=== PATIENT | male | born 1950 | race Caucasian/White ===

== ENCOUNTER 2018-12-10 19:41 | Observation (INO) ==
[2018-12-10 21:02] LABS: Eosinophils % 0.6 %; Mean Platelet Volume 9.1 fL (9.4-12.4)
[2018-12-10 21:04] LABS: Basophils % 0.3 %; Hematocrit 29.7 % (37.5-50.1); Hemoglobin 8.6 g/dL (12.9-16.9); Immature Granulocytes % 0.3 % (0-4); Lymphocytes # 0.5 K/mcL (0.6-4.6); Lymphocytes % 7.2 %; Mean Corpuscular Hemoglobin 25.8 pg (28.0-33.3); Mean Corpuscular Volume 89.2 fL (83.0-100.0); Monocytes # 0.7 K/mcL (0.0-1.3); Neutrophils # 5.5 K/mcL (1.6-8.9); Platelet Count 187 K/mcL (140-400); Red Blood Count 3.33 M/mcL (4.19-5.50); Red Cell Distribution Width 17.2 % (11.5-14.5); Segmented Neutrophils % 81.6 %; White Blood Count 6.7 K/mcL (4.3-11.1)
[2018-12-10 21:24] LABS: Calcium 8.6 mg/dL (8.6-10.3); Potassium 5.1 mEq/L (3.5-5.1); Troponin I 0.03 ng/mL (< 0.04)
[2018-12-10 21:33] LABS: Hypochromasia Present (Not Present); Polychromasia 1+ (Not Present)
[2018-12-10] MEDS ORDERED: Bumetanide 1 MG/4 ML VIAL IVP ONE (23:32)
[2018-12-11] MEDS ORDERED: Naloxone 0.4 MG/ML INJ IVP PRN (01:30)
[2018-12-11] MEDS ORDERED: Ondansetron 4 MG/2 ML VIAL IVP PRN (01:30)
[2018-12-11 01:36] LABS: INR 3.3; Prothrombin Time 37.1 Seconds (9.4-12.1)
[2018-12-11] MEDS ORDERED: *HR* Dextrose 50 % in Water (Syg) 50 ML SYRINGE IVP PRN (01:53)
[2018-12-11] MEDS ORDERED: D5% in Water 1,000 ML IVC PRN (01:53)
[2018-12-11] MEDS ORDERED: Dextrose Gel 15 GM/37.5 ML TUBE PO PRN ×2 (01:53)
[2018-12-11 03:53] LABS: Basophils % 0.2 %; Eosinophils # 0.1 K/mcL (0.0-0.6); Hematocrit 28.6 % (37.5-50.1); Hemoglobin 8.3 g/dL (12.9-16.9); Immature Granulocytes % 0.3 % (0-4); Lymphocytes # 0.5 K/mcL (0.6-4.6); Lymphocytes % 7.9 %; Mean Corpuscular Hemoglobin 25.8 pg (28.0-33.3); Mean Corpuscular Volume 88.8 fL (83.0-100.0); Mean Platelet Volume 9.2 fL (9.4-12.4); Monocytes # 0.7 K/mcL (0.0-1.3); Monocytes % 11.8 %; Neutrophils # 4.9 K/mcL (1.6-8.9); Platelet Count 175 K/mcL (140-400); Red Blood Count 3.22 M/mcL (4.19-5.50); Red Cell Distribution Width 17.3 % (11.5-14.5); Segmented Neutrophils % 78.8 %; White Blood Count 6.2 K/mcL (4.3-11.1)
[2018-12-11 04:02] LABS: INR 3.4; Prothrombin Time 38.3 Seconds (9.4-12.1)
[2018-12-11 04:05] LABS: Activated Partial Thrombo Time 35.9 Seconds (26.0-36.0)
[2018-12-11 04:11] LABS: Estimated Average Glucose 163 mg/dl
[2018-12-11 04:12] LABS: Albumin 3.2 g/dL (3.5-5.7); Albumin/Globulin Ratio 1.2 (1.1-2.2); Bilirubin,Total 1.1 mg/dL (0.3-1.0); Calcium 8.4 mg/dL (8.6-10.3); Chol/HDL Ratio 5.2 (0-4.9); Globulin 2.7 g/dL (2.4-3.5); Magnesium 2.7 mg/dL (1.6-2.6); Phosphorous 3.8 mg/dL (2.7-4.5); Potassium 4.5 mEq/L (3.5-5.1); Total Protein 5.9 g/dL (6.4-8.9)
[2018-12-11] MEDS ORDERED: Furosemide 40 MG/4 ML VIAL IVP SCH (08:00)
[2018-12-11] MEDS ORDERED: metOLazone 5 MG TABLET PO SCH (08:30)
[2018-12-11] MEDS: *HR* Amiodarone 200 MG TABLET PO SCH (09:04)
[2018-12-11] MEDS: Aspirin 81 MG TAB.CHEW PO SCH (09:04)
[2018-12-11] MEDS: carvediloL 6.25 MG TABLET PO SCH ×2 (09:04→17:10)
[2018-12-11] MEDS: Insulin LISPRO 300 UNITS/3 ML VIAL SQ SCH ×4 (09:05→21:21)
[2018-12-11] MEDS: metOLazone 5 MG TABLET PO SCH (09:05)
[2018-12-11] MEDS: Bumetanide 1 MG/4 ML VIAL IVP SCH (17:10)
[2018-12-11] MEDS ORDERED: Warfarin perPT PO PRN (18:00)
[2018-12-11] MEDS ORDERED: *HR* Warfarin 3 MG TABLET PO ONE (18:00)
[2018-12-12 04:44] LABS: Hematocrit 29.1 % (37.5-50.1); Hemoglobin 8.5 g/dL (12.9-16.9); Mean Corpuscular HGB Conc 29.2 g/dL (31.6-35.5); Mean Corpuscular Hemoglobin 25.9 pg (28.0-33.3); Mean Corpuscular Volume 88.7 fL (83.0-100.0); Mean Platelet Volume 9.6 fL (9.4-12.4); Platelet Count 195 K/mcL (140-400); Red Blood Count 3.28 M/mcL (4.19-5.50); Red Cell Distribution Width 17.5 % (11.5-14.5); White Blood Count 5.7 K/mcL (4.3-11.1)
[2018-12-12 04:56] LABS: INR 2.9; Prothrombin Time 32.7 Seconds (9.4-12.1)
[2018-12-12 05:02] LABS: Calcium 8.8 mg/dL (8.6-10.3); Magnesium 2.9 mg/dL (1.6-2.6); Potassium 4.3 mEq/L (3.5-5.1)
[2018-12-12] MEDS: Insulin LISPRO 300 UNITS/3 ML VIAL SQ SCH ×4 (08:16→21:09)
[2018-12-12] MEDS: Bumetanide 1 MG/4 ML VIAL IVP SCH (08:23)
[2018-12-12] MEDS: *HR* Amiodarone 200 MG TABLET PO SCH (08:24)
[2018-12-12] MEDS: metOLazone 5 MG TABLET PO SCH (08:24)
[2018-12-12] MEDS: carvediloL 6.25 MG TABLET PO SCH ×2 (08:25→18:13)
[2018-12-12] MEDS: Aspirin 81 MG TAB.CHEW PO SCH (08:25)
[2018-12-12] MEDS ORDERED: *HR* Warfarin 3 MG TABLET PO ONE (18:00)
[2018-12-13 02:43] LABS: Basophils % 0.2 %; Eosinophils # 0.1 K/mcL (0.0-0.6); Eosinophils % 1.1 %; Hematocrit 31.4 % (37.5-50.1); Hemoglobin 9.1 g/dL (12.9-16.9); Immature Granulocytes % 0.5 % (0-4); Lymphocytes # 0.5 K/mcL (0.6-4.6); Lymphocytes % 8.1 %; Mean Corpuscular Hemoglobin 25.4 pg (28.0-33.3); Mean Corpuscular Volume 87.7 fL (83.0-100.0); Mean Platelet Volume 9.5 fL (9.4-12.4); Monocytes # 0.6 K/mcL (0.0-1.3); Monocytes % 10.1 %; Neutrophils # 4.9 K/mcL (1.6-8.9); Platelet Count 211 K/mcL (140-400); Red Blood Count 3.58 M/mcL (4.19-5.50); Red Cell Distribution Width 17.5 % (11.5-14.5); White Blood Count 6.2 K/mcL (4.3-11.1)
[2018-12-13 02:50] LABS: INR 2.8; Prothrombin Time 31.8 Seconds (9.4-12.1)
[2018-12-13 03:02] LABS: Calcium 8.9 mg/dL (8.6-10.3); Potassium 4.3 mEq/L (3.5-5.1)
[2018-12-13] MEDS: Aspirin 81 MG TAB.CHEW PO SCH (08:54)
[2018-12-13] MEDS: Insulin LISPRO 300 UNITS/3 ML VIAL SQ SCH ×4 (08:54→20:39)
[2018-12-13] MEDS: *HR* Amiodarone 200 MG TABLET PO SCH (08:54)
[2018-12-13] MEDS: carvediloL 6.25 MG TABLET PO SCH ×2 (09:18→18:35)
[2018-12-13] MEDS: Bumetanide 1 MG/4 ML VIAL IVP SCH ×2 (09:45→18:35)
[2018-12-13] MEDS ORDERED: *HR* Warfarin 3 MG TABLET PO ONE (18:00)
[2018-12-14 05:27] LABS: Red Cell Distribution Width 17.4 % (11.5-14.5)
[2018-12-14 05:28] LABS: Hematocrit 31.6 % (37.5-50.1); Hemoglobin 9.2 g/dL (12.9-16.9); Mean Corpuscular HGB Conc 29.1 g/dL (31.6-35.5); Mean Corpuscular Hemoglobin 25.6 pg (28.0-33.3); Mean Platelet Volume 9.1 fL (9.4-12.4); Platelet Count 211 K/mcL (140-400); Red Blood Count 3.59 M/mcL (4.19-5.50); White Blood Count 6.4 K/mcL (4.3-11.1)
[2018-12-14 05:33] LABS: INR 2.8; Prothrombin Time 31.6 Seconds (9.4-12.1)
[2018-12-14 05:48] LABS: Calcium 9.3 mg/dL (8.6-10.3); Potassium 4.4 mEq/L (3.5-5.1)
[2018-12-14] MEDS: Insulin LISPRO 300 UNITS/3 ML VIAL SQ SCH ×4 (10:49→21:16)
[2018-12-14] MEDS: *HR* Amiodarone 200 MG TABLET PO SCH (10:50)
[2018-12-14] MEDS: carvediloL 6.25 MG TABLET PO SCH ×2 (10:50→17:53)
[2018-12-14] MEDS: Aspirin 81 MG TAB.CHEW PO SCH (10:50)
[2018-12-14] MEDS: Bumetanide 1 MG/4 ML VIAL IVP SCH ×2 (10:51→17:52)
[2018-12-14] MEDS ORDERED: *HR* Warfarin 3 MG TABLET PO ONE (18:00)
[2018-12-15 02:56] LABS: Hematocrit 32.1 % (37.5-50.1); Hemoglobin 9.4 g/dL (12.9-16.9); Mean Corpuscular HGB Conc 29.3 g/dL (31.6-35.5); Mean Corpuscular Hemoglobin 25.4 pg (28.0-33.3); Mean Corpuscular Volume 86.8 fL (83.0-100.0); Mean Platelet Volume 9.3 fL (9.4-12.4); Platelet Count 215 K/mcL (140-400); Red Cell Distribution Width 17.3 % (11.5-14.5); White Blood Count 6.6 K/mcL (4.3-11.1)
[2018-12-15 03:01] LABS: INR 2.8; Prothrombin Time 32.4 Seconds (9.4-12.1)
[2018-12-15 03:14] LABS: Calcium 9.1 mg/dL (8.6-10.3); Magnesium 2.5 mg/dL (1.6-2.6); Potassium 4.3 mEq/L (3.5-5.1)
[2018-12-15] MEDS: Insulin LISPRO 300 UNITS/3 ML VIAL SQ SCH ×4 (08:11→21:38)
[2018-12-15] MEDS: carvediloL 6.25 MG TABLET PO SCH ×2 (08:28→17:27)
[2018-12-15] MEDS: Bumetanide 1 MG/4 ML VIAL IVP SCH ×2 (08:28→17:27)
[2018-12-15] MEDS: Aspirin 81 MG TAB.CHEW PO SCH (08:28)
[2018-12-15] MEDS: *HR* Amiodarone 200 MG TABLET PO SCH (08:28)
[2018-12-15] MEDS ORDERED: *HR* Warfarin 3 MG TABLET PO ONE (18:00)
[2018-12-16 06:29] LABS: INR 2.4; Prothrombin Time 27.6 Seconds (9.4-12.1)
[2018-12-16] MEDS: Aspirin 81 MG TAB.CHEW PO SCH (08:56)
[2018-12-16] MEDS: Bumetanide 1 MG/4 ML VIAL IVP SCH ×2 (08:56→16:35)
[2018-12-16] MEDS: carvediloL 6.25 MG TABLET PO SCH ×2 (08:56→16:36)
[2018-12-16] MEDS: Insulin LISPRO 300 UNITS/3 ML VIAL SQ SCH ×4 (08:56→20:42)
[2018-12-16] MEDS: *HR* Amiodarone 200 MG TABLET PO SCH (08:56)
[2018-12-16 09:27] LABS: Hematocrit 32.7 % (37.5-50.1); Hemoglobin 9.5 g/dL (12.9-16.9); Mean Corpuscular HGB Conc 29.1 g/dL (31.6-35.5); Mean Corpuscular Volume 89.3 fL (83.0-100.0); Mean Platelet Volume 9.1 fL (9.4-12.4); Platelet Count 218 K/mcL (140-400); Red Blood Count 3.66 M/mcL (4.19-5.50); Red Cell Distribution Width 17.4 % (11.5-14.5); White Blood Count 6.4 K/mcL (4.3-11.1)
[2018-12-16 09:41] LABS: Calcium 9.1 mg/dL (8.6-10.3); Potassium 4.5 mEq/L (3.5-5.1)
[2018-12-16] MEDS ORDERED: *HR* Warfarin 3 MG TABLET PO ONE (18:00)
[2018-12-17 07:03] LABS: INR 2.3; Prothrombin Time 26.6 Seconds (9.4-12.1)
[2018-12-17 07:15] LABS: Calcium 9.4 mg/dL (8.6-10.3); Potassium 4.4 mEq/L (3.5-5.1)
[2018-12-17] MEDS: carvediloL 6.25 MG TABLET PO SCH ×2 (08:22→17:19)
[2018-12-17] MEDS: Aspirin 81 MG TAB.CHEW PO SCH (08:22)
[2018-12-17] MEDS: Bumetanide 1 MG/4 ML VIAL IVP SCH ×2 (08:22→17:18)
[2018-12-17] MEDS: *HR* Amiodarone 200 MG TABLET PO SCH (08:22)
[2018-12-17] MEDS: Insulin LISPRO 300 UNITS/3 ML VIAL SQ SCH ×4 (08:23→20:47)
[2018-12-17] MEDS ORDERED: Bumetanide 1 MG/4 ML VIAL IVP ONE (09:55)
[2018-12-17] MEDS ORDERED: *HR* Warfarin 3 MG TABLET PO ONE (18:00)
[2018-12-18 05:20] LABS: INR 2.8; Prothrombin Time 31.9 Seconds (9.4-12.1)
[2018-12-18 05:33] LABS: Calcium 9.2 mg/dL (8.6-10.3); Potassium 4.8 mEq/L (3.5-5.1)
[2018-12-18] MEDS: *HR* Amiodarone 200 MG TABLET PO SCH (08:37)
[2018-12-18] MEDS: carvediloL 6.25 MG TABLET PO SCH ×2 (08:37→17:49)
[2018-12-18] MEDS: Aspirin 81 MG TAB.CHEW PO SCH (08:37)
[2018-12-18] MEDS: Bumetanide 1 MG/4 ML VIAL IVP SCH (08:38)
[2018-12-18] MEDS: Insulin LISPRO 300 UNITS/3 ML VIAL SQ SCH ×3 (12:34→19:53)
[2018-12-18] MEDS: Bumetanide 1 MG TABLET PO SCH (17:48)
[2018-12-18] MEDS ORDERED: *HR* Warfarin 3 MG TABLET PO ONE (18:00)
[2018-12-18] MEDS ORDERED: Insulin LISPRO 300 UNITS/3 ML VIAL SQ SCH (21:00)
[2018-12-19 04:04] LABS: Hemoglobin 8.7 g/dL (12.9-16.9)
[2018-12-19 04:05] LABS: Mean Corpuscular HGB Conc 28.1 g/dL (31.6-35.5); Mean Corpuscular Hemoglobin 25.3 pg (28.0-33.3); Mean Corpuscular Volume 90.1 fL (83.0-100.0); Mean Platelet Volume 9.3 fL (9.4-12.4); Platelet Count 189 K/mcL (140-400); Red Blood Count 3.44 M/mcL (4.19-5.50); Red Cell Distribution Width 17.6 % (11.5-14.5); White Blood Count 6.5 K/mcL (4.3-11.1)
[2018-12-19 04:10] LABS: INR 2.7; Prothrombin Time 30.2 Seconds (9.4-12.1)
[2018-12-19 04:23] LABS: Calcium 9.2 mg/dL (8.6-10.3); Potassium 4.7 mEq/L (3.5-5.1)
[2018-12-19] MEDS: Bumetanide 1 MG TABLET PO SCH (08:19)
[2018-12-19] MEDS: Insulin LISPRO 300 UNITS/3 ML VIAL SQ SCH (08:19)
[2018-12-19] MEDS: carvediloL 6.25 MG TABLET PO SCH (08:19)
[2018-12-19] MEDS: *HR* Amiodarone 200 MG TABLET PO SCH (08:19)
[2018-12-19] MEDS: Aspirin 81 MG TAB.CHEW PO SCH (08:19)
[2018-12-19 11:08] VITALS: BP 111/57
== END 2018-12-19 13:15 | disposition home or self-care (01) ==
LOC: CDU 19:41 → EMEROOARM 19:41 → SUATTDRO 23:57 → CDU 12-11 00:54 → 3BNU 12-13 17:13
PROVIDERS: ADMIT Internal Medicine Nephrology; ATTEND Internal Medicine

== ENCOUNTER 2018-12-20 16:26 | Observation (INO) ==
[2018-12-20] MEDS ORDERED: Naloxone 0.4 MG/ML INJ IVP PRN (22:28)
[2018-12-20] MEDS ORDERED: Dextrose Gel 15 GM/37.5 ML TUBE PO PRN ×2 (23:10)
[2018-12-20] MEDS ORDERED: D5% in Water 1,000 ML IVC PRN (23:10)
[2018-12-20] MEDS ORDERED: *HR* Dextrose 50 % in Water (Syg) 50 ML SYRINGE IVP PRN (23:10)
--- NOTE | 2018-12-20 23:21 | Internal Med History&Physical ---
<Phil Thompson - Last Filed: 12/21/18 00:56> Date of Encounter: 12/21/18 Time of Encounter: 22:30 Internal Medicine - H&P: HPI Chief complaint: fall Admitted From: Hospital to Hospital Transfer Plans for Post Hospital Care: Home History of present illness: Mr. Elliott is a 68 year old male with history of heart failure with reduced ejection fraction with an ejection fraction of 16%, diabetes mellitus, hy pertension, CKD, who was recently discharged from the hospital on 12/19/18 following an admission for CHF exacerbation who presents from [facility] due to syncope and fall. The patient states that he had gotten out of his car and was walking to the crushed use the bathroom when he briefly lost consciousness and fell and hit his head. He does not remember exactly how it happened, however he feels that he got lightheaded, passed out and lost consciousness. He says that this happened in a few seconds and his sister woke him up. This has happened once before. He says that earlier in the day he did not very busy and was basically running errands around town but was not having a ny problems. He does say that he had some shortness of breath even with short distance of walking, and was not seeing significant improvement since leaving the hospital. He denies any chest pains. He was not having any other significant symptoms including fever, chills, sweats. He denies any visual disturbance, headache, focal neurological deficits, paresthesias. He otherwise has no acute complaints at this time. In the emergency department at [place], the patient did have a set of labs which demonstrated sodium 137, potassium 4.9, chloride 100, bicarbonate 28, BUNs 71, serum creatinine 1.64, glucose 238. His CBC showed WBC 7.2, hemoglobin 8.3, platelets 213. The patient also had liver enzymes demonstrating AST 45, LT 51, lactic acid 2.26. His troponin was mildly elevated at 0.05 and then 0.07. He had a CT of the head which was negative and a CT of the maxillofacial area area which was also negative. Chest x-ray showed bilateral lower lobe infiltrates positive for possible pneumonitis versus atelectasis. His symptoms generally got better as he was resting however he was transferred to [facility] for further workup and management. Past Med Surg Social Fam HX - Past Medical History Medical history: atrial fibrillation, CHF, coronary artery disease, diabetes, hypertension, myocardial infarction, renal disease Psychiatric history: no psych history - Past Surgical History Surgical History: angioplasty/stent, coronary bypass (CABG) Additional surgical history: Cardiac cath with stent placement. CABG - Social History Smoking Status: Never smoker Smokeless Tobacco Status: No Alcohol use: none Drug use: none - Family History Mother Living Status: Hx Family Cardiac Disorders: Yes Father Living Status: Hx Family Cardiac Disorders: Yes Internal Medicine - H&P: Meds Amiodarone [Cordarone] 200 mg PO DAILY 09/07/18 [History] Carvedilol [Coreg] 6.25 mg PO BID 09/07/18 [History] Lisinopril 2.5 mg PO DAILY 09/07/18 [History] Warfarin [Coumadin] 3 mg PO SUTUTHSA@1800 09/07/18 [History] GlipiZIDE [Glipizide Xl] 5 mg PO DAILY 09/09/18 [History] Aspirin 81 mg PO DAILY 11/07/18 [History] Warfarin [Coumadin] 1.5 mg PO MOWEFR@1800 12/10/18 [History] Multivitamin [One-Daily Multi-Vitamin] 1 tab PO DAILY 12/12/18 [History] Bumetanide [Bumex] 2 mg PO BIDDIURETIC #120 tablet 12/19/18 [Rx] Allergy/AdvReac Type Severity Reaction Status Date / Time No Known Allergies Allergy Verified 12/12/18 07:46 All Systems PM: A 10-system review of systems was performed and is negative for pertinent findings except as documented above in the HPI. Review of systems: Constitutional: Denies fevers, chills, weight loss, generalized fatigue Head/Neck: Denies LOWRY, neck stiffness EENT: Denies vision changes/blurriness, rhinorrhea, congestion, sore throat CVS: Denies chest pain, palpitations, PND. Admits to dyspnea on exertion, edema which has improved Pulm: Denies cough, sputum, hemoptysis, wheezing GI: Denies abdominal pain, nausea, vomiting, diarrhea, constipation, melena, hematemasis : Denies dysuria, increased frequency, urgency, hematuria Heme: Admits to ease of bleeding MSK: Denies joint pain, limited ROM. He does feel that his legs are generally weak. Skin: Denies rashes, ulcers, color changes Neuro: Denies LOWRY, paresthesias, focal deficits, ataxia - Constitutional Vitals: Temp Pulse Resp Pulse Ox 97.6 F 80 20 99 12/20/18 21:04 12/20/18 21:04 12/20/18 21:04 12/20/18 21:04 Exam: Gen: Vitals noted. No acute distress. Eyes: anicteric sclerae, moist conjunctivae; no lid-lag; Pupils equal and reactive to light HENT: Multiple areas of ecchymosis and blunt lacerations with blood from fall. oropharynx clear with moist mucous membranes and no mucosal ulcerations; normal hard and soft palate Neck: Trachea midline; supple, no thyromegaly or lymphadenopathy Cardiac: RRR, no murmur, +S1/S2 Pulmonary: Bibasilar rales noted on examination Abdomen: soft, nontender, no guarding. No masses or hepatosplenomegaly MSK: ROM intact, no joint swelling noted. Extremities: 1-2+ BLE edema, nontender calf, no cyanosis or clubbing. Lacerations noted with skin wrapped around and blood from fall Skin: Normal temperature, turgor and texture; no rash, ulcers or subcutaneous nodules Neuro: moves all extremities, no focal deficits. Muscle strength intact in all 4 extremities. Speech is appropriate without slurring Psych: Appropriate mood and behavior. A&Ox3 Internal Med - H&P Results - Labs CBC & Chem 7: 12/21/18 00:12 12/21/18 00:12 - Assessment and Plan (1) Syncope and collapse Current Visit: Yes Status: Acute Assessment and plan: Syncope and collapse, likely secondary to systolic heart failure with reduced ejection fraction Patient apparently does have severe heart failure, ejection fraction 16%. He does state that he becomes significantly short of breath with minimal exertion Uncertain what the exact cause of syncope is not situation, however he has had significant diuresis recently Labs do not indicate that he has an AK I, however BUN and is 71. Possible for some intravascular depletion Additionally, given his shortness of breath, he could have potentially had some demand ischemia leading to syncope Finally, the patient's lactic acid was 2.26 at [place], and he did just been a significant amount of time in the hospital Chest x-ray at [place] showed bilateral lower lobe infiltrates suggesting pneumonitis versus atelectasis Plan We will check blood cultures, pro-calcitonin Repeat labs in the morning, BMP and CBC Cardiac and O2 monitoring, Trend troponins q4h neuro checks Hold aspirin and coumadin (2) Heart failure with reduced ejection fraction Current Visit: Yes Status: Acute Assessment and plan: HFrEF, recently admitted with acute exacerbation. MUGA Report 11/06/18 Gated EF 16%. Echo shows dilated LV Appears to be approaching euvolemic state on examination Will continue BB, lisinopril. Hold Asa in acute syncope with hit to head Continue home bumex Qualifiers: Heart failure chronicity: chronic Qualified Code(s): I50.22 - Chronic systolic (congestive) heart failure (3) Afib Current Visit: Yes Status: Chronic Assessment and plan: Chronic afib on warfarin Hold due to fall with hit to head Qualifiers: Atrial fibrillation type: paroxysmal Qualified Code(s): I48.0 - Paroxysmal atrial fibrillation (4) Type 2 diabetes mellitus Current Visit: Yes Status: Chronic Assessment and plan: DM with hyperglycemia ACHS accuchecks, Hold PO meds Will start weight based Levemir. SSI Qualifiers: Diabetes mellitus tank terminal gauger insulin use: without penitentiary use Diabetes mellitus complication status: without complication Qualified Code(s): E11.9 - Type 2 diabetes mellitus without complications (5) CAD (coronary artery disease) Current Visit: Yes Status: Chronic Assessment and plan: Continue home meds, hold ASA Qualifiers: Coronary Disease-Associated Artery/Lesion type: [place] artery [place] vs. transplanted heart: [place] heart Associated angina: without angina Qualified Code(s): I25.10 - Atherosclerotic heart disease of [place] coronary artery without angina pectoris (6) Elevated troponin Current Visit: Yes Status: Acute Assessment and plan: Elevated troponin, 0.05 -> 0.07 Likely demand ischemia in setting of CHF Will trend to peak - Time Spent With Patient Total time spent is greater than 50% in coordination of care (as documented) at patient's floor/unit and/or counseling patient: <KofiKennyNicci Z - Last Filed: 12/21/18 07:02> Date of Encounter: 12/20/18 Internal Medicine - H&P: HPI History of present illness: Mr. Elliott is a 68 year old male All Systems PM: A 10-system review of systems was performed and is negative for pertinent findings except as documented above in the HPI. - Constitutional Vitals: Temp Pulse Resp BP Pulse Ox 97.6 F 69 14 99/75 97 12/21/18 04:23 12/21/18 04:23 12/21/18 04:23 12/21/18 04:58 12/21/18 04:23 Internal Med - H&P Results - Labs CBC & Chem 7: 12/21/18 00:12 12/21/18 00:12 Labs: Short CBC 12/21/18 Range/Units 00:12 WBC 8.4 (4.3-11.1) K/mcL Hgb 8.7 L (12.9-16.9) g/dL Hct 29.6 L (37.5-50.1) % Plt Count 201 (140-400) K/mcL Neutrophils # 7.1 (1.6-8.9) K/mcL BMP 12/21/18 00:12 Sodium 138 Potassium 4.7 Chloride 102 Carbon Dioxide 26 BUN 68 H Creatinine 1.63 H Glucose 185 H Calcium 9.4 Cardiac Enzymes 12/21/18 12/21/18 Range/Units 00:12 04:47 Troponin I 0.90 H* 0.77 H* (< 0.04) ng/mL Liver Function 12/21/18 Range/Units 00:12 Total Bilirubin 1.2 H (0.3-1.0) mg/dL AST 44 H (13-39) Units/L ALT 50 (7-52) Units/L Alkaline Phosphatase 191 H (34-104) Units/L Albumin 3.6 (3.5-5.7) g/dL - Time Spent With Patient Total time spent is greater than 50% in coordination of care (as documented) at patient's floor/unit and/or counseling patient: - Attending Attestation I performed a history and physical examination of the patient and discussed his management with the resident. I reviewed the residents note and agree with the documented findings and plan of care.
[2018-12-21 00:29] LABS: Basophils % 0.2 %; Eosinophils % 0.1 %; Hematocrit 29.6 % (37.5-50.1); Hemoglobin 8.7 g/dL (12.9-16.9); Immature Granulocytes % 0.6 % (0-4); Lymphocytes # 0.5 K/mcL (0.6-4.6); Lymphocytes % 6.2 %; Mean Corpuscular HGB Conc 29.4 g/dL (31.6-35.5); Mean Corpuscular Hemoglobin 25.9 pg (28.0-33.3); Mean Corpuscular Volume 88.1 fL (83.0-100.0); Mean Platelet Volume 9.2 fL (9.4-12.4); Monocytes # 0.7 K/mcL (0.0-1.3); Monocytes % 8.2 %; Neutrophils # 7.1 K/mcL (1.6-8.9); Platelet Count 201 K/mcL (140-400); Red Blood Count 3.36 M/mcL (4.19-5.50); Red Cell Distribution Width 17.7 % (11.5-14.5); Segmented Neutrophils % 84.7 %; White Blood Count 8.4 K/mcL (4.3-11.1)
[2018-12-21 00:36] LABS: INR 2.2; Prothrombin Time 25.5 Seconds (9.4-12.1)
[2018-12-21 00:44] LABS: Albumin 3.6 g/dL (3.5-5.7); Albumin/Globulin Ratio 1.1 (1.1-2.2); Bilirubin,Total 1.2 mg/dL (0.3-1.0); Calcium 9.4 mg/dL (8.6-10.3); Globulin 3.2 g/dL (2.4-3.5); Magnesium 2.5 mg/dL (1.6-2.6); Phosphorous 4.4 mg/dL (2.7-4.5); Potassium 4.7 mEq/L (3.5-5.1); Total Protein 6.8 g/dL (6.4-8.9)
[2018-12-21] MEDS: Insulin LISPRO 300 UNITS/3 ML VIAL SQ SCH ×4 (08:00→22:02)
--- NOTE | 2018-12-21 08:18 | Internal Med Progress Note ---
<Moise Stone - Last Filed: 12/21/18 13:35> Hospitalist Progress Note - Encounter Date of Encounter: 12/21/18 - Exam Vitals: Temp Pulse Resp BP Pulse Ox 97.7 F 76 14 115/54 96 12/21/18 10:40 12/21/18 10:40 12/21/18 10:40 12/21/18 10:40 12/21/18 10:40 - Time Spent with Patient Total time spent is greater than 50% in coordination of care (as documented) at patient's floor/unit and/or counseling patient: Internal Medicine: Result - Labs CBC & Chem 7: 12/21/18 00:12 12/21/18 00:12 Labs: Short CBC 12/21/18 Range/Units 00:12 WBC 8.4 (4.3-11.1) K/mcL Hgb 8.7 L (12.9-16.9) g/dL Hct 29.6 L (37.5-50.1) % Plt Count 201 (140-400) K/mcL Neutrophils # 7.1 (1.6-8.9) K/mcL BMP 12/21/18 00:12 Sodium 138 Potassium 4.7 Chloride 102 Carbon Dioxide 26 BUN 68 H Creatinine 1.63 H Glucose 185 H Calcium 9.4 Cardiac Enzymes 12/21/18 12/21/18 12/21/18 Range/Units 00:12 04:47 10:00 Troponin I 0.90 H* 0.77 H* 0.56 H* (< 0.04) ng/mL Liver Function 12/21/18 Range/Units 00:12 Total Bilirubin 1.2 H (0.3-1.0) mg/dL AST 44 H (13-39) Units/L ALT 50 (7-52) Units/L Alkaline Phosphatase 191 H (34-104) Units/L Albumin 3.6 (3.5-5.7) g/dL - ABG Interpretation ABG results: PT/INR, D-dimer PT 25.5 Seconds (9.4-12.1) H 12/21/18 00:12 - Impressions Impressions Chest X-Ray 12/21/18 08:55 IMPRESSION: Stable mild congestive heart failure. Small left pleural effusion. D/ / Jodi Aguilar MD / Jodi Aguilar MD Interpreting Provider: Jodi Aguilar MD Consult Discharge Plan - Plan Referrals: Richelle Caballero [Primary Care Provider] - - Attending Attestation I have seen and independently assessed this patient and I agree with plan as documented Plan Syncope and collapse in the setting of ischemic cardiomyopathy. Possibly 2/2 to diuresis and dehydration vs arrhythmia in absence of ICD Cardiology consulted and appreciate recs. Obtain orthostatics. Monitor volume status with diuresis <Cristian Flood L - Last Filed: 12/21/18 16:26> Hospitalist Progress Note - Encounter Date of Encounter: 12/21/18 Time of Encounter: 08:17 - Subjective Interval History: Patient seen and examined. Sitting comfortably in chair next to bed. No acute events since admission. Afebrile. Patient denies any headache, chest pain, shortness of breath, abdominal pain, constipation, diarrhea, changes in urination. Patient does report some leg swelling has improved significantly since beginning her previous admission. - Exam Vitals: Temp Pulse Resp BP Pulse Ox 98.2 F 66 14 108/66 97 12/21/18 07:10 12/21/18 07:10 12/21/18 07:10 12/21/18 07:10 12/21/18 07:10 Exam: Gen: Vitals noted. No acute distress. Eyes: anicteric sclerae, moist conjunctivae, Pupils equal and reactive to light HENT: Multiple areas of ecchymosis and dried blood from fall. Noted on Forehead and left cheek. oropharynx clear with moist mucous membranes and no mucosal ulcerations; normal hard and soft palate Neck: Trachea midline; supple, no thyromegaly or lymphadenopathy Cardiac: RRR, no murmur, +S1/S2 Pulmonary: Bibasilar wheezing, mild. No rales or crackles Abdomen: soft, nontender, no guarding. No masses or hepatosplenomegaly MSK: ROM intact, no joint swelling noted. Extremities: 1-2+ BLE edema, nontender calf, no cyanosis or clubbing. Skin: Normal temperature, turgor and texture; noulcers or subcutaneous nodules. Dry scaly skin noted on BL shins Neuro: moves all extremities, no focal deficits. Muscle strength intact in all 4 extremities. Speech is appropriate without slurring Psych: Appropriate mood and behavior. A&Ox3 - Assessment and Plan (1) Syncope and collapse Current Visit: Yes Status: Acute Assessment and Plan: Presented with syncope and collapse. Fall with head trauma secondary to lightheadedness -Hx of heart failure with reduced ejection fraction 16% -SOB with minimal exertion -Discharged on diuretics on 12/19/18 after admission for CHF exacerbation -Possibly due to dehydration, secondary to diuretic use -Elevated troponin, possible demand ischemia/infarct that led to syncope -CXR, BL lower lobe infiltrates Plan: - Blood cultures pending - pro-calcitonin 0.20 - Monitor Labs, BMP, CBC - Cardiac and O2 monitoring - Troponins: 0.90>>0.77>>0.56 - q4h neuro checks - Hold coumadin - Cardiiology consult: Describes orthostasis, caution with diuresis, monitor tele (2) Elevated troponin Current Visit: Yes Status: Acute Assessment and Plan: Elevated troponin, 0.90>>0.77>>0.56 -Denies chest pain -Cardiology consulted: NSTEMI type I vs Type II, will consider further ischemic work-up (3) Heart failure with reduced ejection fraction Current Visit: Yes Status: Acute Assessment and Plan: HFrEF, recently admitted with acute exacerbation. MUGA Report 11/06/18 Gated EF 16%. Echo shows dilated LV Appears to be approaching euvolemic state on examination 2+ pitting edema remains, improved since the beginning of previous admission Will continue BB Continue home bumex - Cariology consult: Bumex as tolerated. Continue BB, kaden aceI, strict I&Os (4) Afib Current Visit: Yes Status: Chronic Assessment and Plan: Chronic afib on warfarin Hold due to fall with hit to head - Rate controlled with carvedilol - Will consider restarting coumadin before discharge (5) Type 2 diabetes mellitus Current Visit: Yes Status: Chronic Assessment and Plan: DM with hyperglycemia ACHS accuchecks, Hold PO meds - Levemir. SSI (6) CAD (coronary artery disease) Current Visit: Yes Status: Chronic Assessment and Plan: CABG 1999. 5 stents, most recent 2017 -cont ASA, BB, Statin DVT Prophylaxis: SCDs - Time Spent with Patient Total time spent is greater than 50% in coordination of care (as documented) at patient's floor/unit and/or counseling patient: Internal Medicine: Result - Labs CBC & Chem 7: 12/21/18 00:12 12/21/18 00:12 Labs: Short CBC 12/21/18 Range/Units 00:12 WBC 8.4 (4.3-11.1) K/mcL Hgb 8.7 L (12.9-16.9) g/dL Hct 29.6 L (37.5-50.1) % Plt Count 201 (140-400) K/mcL Neutrophils # 7.1 (1.6-8.9) K/mcL BMP 12/21/18 00:12 Sodium 138 Potassium 4.7 Chloride 102 Carbon Dioxide 26 BUN 68 H Creatinine 1.63 H Glucose 185 H Calcium 9.4 Cardiac Enzymes 12/21/18 12/21/18 Range/Units 00:12 04:47 Troponin I 0.90 H* 0.77 H* (< 0.04) ng/mL Liver Function 12/21/18 Range/Units 00:12 Total Bilirubin 1.2 H (0.3-1.0) mg/dL AST 44 H (13-39) Units/L ALT 50 (7-52) Units/L Alkaline Phosphatase 191 H (34-104) Units/L Albumin 3.6 (3.5-5.7) g/dL - ABG Interpretation ABG results: PT/INR, D-dimer PT 25.5 Seconds (9.4-12.1) H 12/21/18 00:12 <Cristian Flood L - Last Filed: 12/21/18 16:26> (3) Heart failure with reduced ejection fraction Qualifiers: Qualified Code(s): I50.22 - Chronic systolic (congestive) heart failure (4) Afib Qualifiers: Qualified Code(s): I48.0 - Paroxysmal atrial fibrillation (5) Type 2 diabetes mellitus Qualifiers: Qualified Code(s): E11.9 - Type 2 diabetes mellitus without complications (6) CAD (coronary artery disease) Qualifiers: Qualified Code(s): I25.10 - Atherosclerotic heart disease of [place] coronary artery without angina pectoris
[2018-12-21] MEDS ORDERED: Aspirin 81 MG TAB.CHEW PO SCH (09:00)
[2018-12-21] MEDS: Bumetanide 1 MG TABLET PO SCH ×2 (09:10→17:18)
[2018-12-21] MEDS: *HR* Amiodarone 200 MG TABLET PO SCH (09:10)
--- NOTE | 2018-12-21 13:20 | Cardiology Consult Note ---
<Jerrell Hernandez - Last Filed: 12/21/18 13:15> Date of Encounter: 12/21/18 Time of Encounter: 13:15 Assessment and Plan (1) Syncope and collapse Current Visit: Yes Status: Acute Describes orthostasis. B/p low on my exam. S/p admission for IV diuresis with bumex and metolazone. Slow position change recommended. Caution with diuresis. Monitor telemetry. Rate controlled atrial firillation seen. No VT, bradycardia, or pauses. Orthostatic vitals. (2) Elevated troponin Current Visit: Yes Status: Acute Troponin elevation, 0.90, 0.77, 0.56. S/p Fall. NSTEMI type I vs Type II. Denies chest pain although no chest pain in the past. Known ICMP. Ef 16% on recent muga scan. 30-35% on TTE. We will consider further ischemic evaluation during hospital stay. Coumadin on hold d/t head trauma. Heparin was deferred. Continue asa, statin, bb. (3) CAD (coronary artery disease) Current Visit: Yes Status: Acute H/o CABG in 1999 and 5 cardiac stents, most recently 2017. Continue asa, statin, bb. Qualifiers: Coronary Disease-Associated Artery/Lesion type: [place] artery [place] vs. transplanted heart: [place] heart Associated angina: without angina Qualified Code(s): I25.10 - Atherosclerotic heart disease of [place] coronary artery without angina pectoris (4) CHF exacerbation Current Visit: No Status: Acute H/o chronic HFrEF. EF 16% on muga and 30%-35% on TTE. Recent admission for IV diuresis. BLE edema improved. Continues to have 2+ pitting edema. Contimue bumex as tolerated. Continue bb. No aceI with hypotension and renal insufficiency. Strict I&O and daily weight. He is scheduled out-pt to discuss ICD. Qualifiers: Heart failure type: systolic Qualified Code(s): I50.23 - Acute on chronic systolic (congestive) heart failure (5) Afib Current Visit: Yes Status: Chronic H/o PAF. Currently rate controlled afib. On carvedilol for rate control. Coumadin held on admission after fall. Will consider restarting prior to discharge. INR currently 2.2. Qualifiers: Atrial fibrillation type: paroxysmal Qualified Code(s): I48.0 - Paroxysmal atrial fibrillation Discussion w patient/family: The assessment and plan as outlined above was discussed with the patient and/or family members who expressed understanding and agreement. All questions were answered. Thank you for involving us in the care of your patient. Please call with any questions. History of Present Illness Consult date: 12/21/18 Requesting physician: Cristian Flood Consult reason: elevated troponin, Need for ICD Chief complaint: Presyncope History of present illness: Mr. Elliott is a 68 year old male with a past medical history of CAD status post CABG 1999, prior PCI , ischemic cardiomyopathy, atrial fibrillation on Coumadin, and diabetes type 2. He presented to [facility] after he became lightheaded and fell. He may have passed out. He has multiple abrasions on his face, arms, and leg. He denies chest pain. He was just discharged from the hospital two days ago. He was seen for acute on chronic CHF and diuresed. He was hospitalized multiple times this year for CHF. Cardiology consulted for elevated troponin. His coumadin was held on admission due to head trauma. He is scheduled to discuss ICD placement in the out-pt setting. Prior CV testing: TTE 09/2017- EF 30-35%. Severe segmental systolic dysfunction. Mild to moderate LVH. Indeterminate diastolic function. Mild RV hypokinesis mild aortic stenosis. Moderate tricuspid regurgitation. Mild pulmonic regurgitation. Moderate p ulmonary artery hypertension. -LVEF 20-25%. Severe left atrial and right atrial enlargement. Mild to moderate AR. Moderate MR. Past Med Surg Social Fam HX - Past Medical History Medical history: atrial fibrillation, CHF, coronary artery disease, diabetes, hypertension, myocardial infarction, renal disease Psychiatric history: no psych history - Past Surgical History Surgical History: angioplasty/stent, coronary bypass (CABG) Additional surgical history: Cardiac cath with stent placement. CABG - Social History Smoking Status: Never smoker Smokeless Tobacco Status: No Alcohol use: none Drug use: none - Family History Mother Living Status: Hx Family Cardiac Disorders: Yes Father Living Status: Hx Family Cardiac Disorders: Yes Medications and Allergies Amiodarone [Cordarone] 200 mg PO DAILY 09/07/18 [History] Carvedilol [Coreg] 6.25 mg PO BID 09/07/18 [History] Lisinopril 2.5 mg PO DAILY 09/07/18 [History] Warfarin [Coumadin] 3 mg PO SUTUTHSA@1800 09/07/18 [History] GlipiZIDE [Glipizide Xl] 5 mg PO DAILY 09/09/18 [History] Aspirin 81 mg PO DAILY 11/07/18 [History] Warfarin [Coumadin] 1.5 mg PO MOWEFR@1800 12/10/18 [History] Multivitamin [One-Daily Multi-Vitamin] 1 tab PO DAILY 12/12/18 [History] Bumetanide [Bumex] 2 mg PO BIDDIURETIC #120 tablet 12/19/18 [Rx] Allergy/AdvReac Type Severity Reaction Status Date / Time No Known Allergies Allergy Verified 12/12/18 07:46 All Systems Review: The remainder of the systems were reviewed and are negative Physical Examination Vital Signs, Last 4 Hours Temp Pulse Resp BP Pulse Ox 12/21/18 10:40 97.7 F 76 14 115/54 96 General: Conversant, No Apparent Distress HEENT: Atraumatic, Normocephaly, Mucus Membranes Moist Neck: No JVD, Normal carotid pulses Cardiac: Other (Irregular) Lungs: Normal Breath Sounds, No Wheeze, Rales, Rhonchi Neuro: Alert and responsive, No focal deficits noted Abdomen: Soft, Non-Tender Skin: Other (Multiple abrasions on face, arm, and knee) Musculoskeletal: No Chest Wall Tenderness Extremities: No Clubbing, No Cyanosis, No Edema, Normal Pulses Results 12/21/18 00:12 12/21/18 00:12 Lab Results 12/21/18 12/21/18 12/21/18 00:12 00:12 00:12 WBC 8.4 Hgb 8.7 L Hct 29.6 L Plt Count 201 INR 2.2 Sodium 138 Potassium 4.7 Chloride 102 Carbon Dioxide 26 BUN 68 H Creatinine 1.63 H Glucose 185 H Calcium 9.4 Magnesium 2.5 Total Bilirubin 1.2 H AST 44 H ALT 50 Alkaline Phosphatase 191 H Troponin I 12/21/18 12/21/18 12/21/18 00:12 04:47 10:00 WBC Hgb Hct Plt Count INR Sodium Potassium Chloride Carbon Dioxide BUN Creatinine Glucose Calcium Magnesium Total Bilirubin AST ALT Alkaline Phosphatase Troponin I 0.90 H* 0.77 H* 0.56 H* - Imaging and Cardiology Echo: report reviewed - EKG Interpretation EKG results cardiology: personally reviewed Consult Discharge Plan - Plan Referrals: Richelle Caballero [Primary Care Provider] - <Lilibeth Smith - Last Filed: 12/21/18 16:26> Date of Encounter: 12/21/18 - Attending Attestation I have personally performed a face to face evaluation on this patient. I have reviewed and agree with the care plan. History and Exam by me shows: 68 YOM with known ICM EF 16% here after fall possible orthostatic hypotension mildly elevated trops downtrending. Plan for ICD as an OP initially but presents with hypervolemia. Will continue diuresis and plan for possible inpatient ICD. Assessment and Plan Discussion w patient/family: The assessment and plan as outlined above was discussed with the patient and/or family members who expressed understanding and agreement. All questions were answered. Thank you for involving us in the care of your patient. Please call with any questions. History of Present Illness History of present illness: Mr. Elliott is a 68 year old male All Systems Review: The remainder of the systems were reviewed and are negative Physical Examination Vital Signs, Last 4 Hours Temp Pulse Resp BP Pulse Ox 12/21/18 15:40 98.1 F 74 16 106/61 97 Results 12/21/18 00:12 12/21/18 00:12 Lab Results 12/21/18 12/21/18 12/21/18 00:12 00:12 00:12 WBC 8.4 Hgb 8.7 L Hct 29.6 L Plt Count 201 INR 2.2 Sodium 138 Potassium 4.7 Chloride 102 Carbon Dioxide 26 BUN 68 H Creatinine 1.63 H Glucose 185 H Calcium 9.4 Magnesium 2.5 Total Bilirubin 1.2 H AST 44 H ALT 50 Alkaline Phosphatase 191 H Troponin I 12/21/18 12/21/18 12/21/18 00:12 04:47 10:00 WBC Hgb Hct Plt Count INR Sodium Potassium Chloride Carbon Dioxide BUN Creatinine Glucose Calcium Magnesium Total Bilirubin AST ALT Alkaline Phosphatase Troponin I 0.90 H* 0.77 H* 0.56 H*
[2018-12-21] MEDS: Insulin DETEMIR 100 UNIT/ML X5UNITS SQ SCH (22:01)
[2018-12-22 07:19] LABS: Basophils % 0.4 %; Eosinophils # 0.1 K/mcL (0.0-0.6); Eosinophils % 0.7 %; Hematocrit 26.5 % (37.5-50.1); Hemoglobin 7.8 g/dL (12.9-16.9); Immature Granulocytes % 0.7 % (0-4); Lymphocytes # 0.6 K/mcL (0.6-4.6); Lymphocytes % 7.2 %; Mean Corpuscular HGB Conc 29.4 g/dL (31.6-35.5); Mean Corpuscular Hemoglobin 25.7 pg (28.0-33.3); Mean Corpuscular Volume 87.2 fL (83.0-100.0); Mean Platelet Volume 9.4 fL (9.4-12.4); Monocytes # 0.8 K/mcL (0.0-1.3); Monocytes % 10.5 %; Neutrophils # 6.1 K/mcL (1.6-8.9); Platelet Count 201 K/mcL (140-400); Red Blood Count 3.04 M/mcL (4.19-5.50); Red Cell Distribution Width 17.8 % (11.5-14.5); Segmented Neutrophils % 80.5 %; White Blood Count 7.6 K/mcL (4.3-11.1)
[2018-12-22 07:41] LABS: Potassium 4.6 mEq/L (3.5-5.1)
[2018-12-22] MEDS: Insulin LISPRO 300 UNITS/3 ML VIAL SQ SCH ×4 (08:03→20:57)
[2018-12-22] MEDS: *HR* Amiodarone 200 MG TABLET PO SCH (08:08)
[2018-12-22] MEDS: Bumetanide 1 MG TABLET PO SCH ×2 (08:08→17:13)
--- NOTE | 2018-12-22 09:38 | Internal Med Progress Note ---
<Cristian Flood - Last Filed: 12/22/18 12:47> Hospitalist Progress Note - Encounter Date of Encounter: 12/22/18 Time of Encounter: 09:35 - Subjective Interval History: Patient seen and examined. Sitting comfortably on edge of bed. No overnight events. Afebrile. Denies headache, chest pain, shortness of breath, abdominal pain, constipation, diarrhea, changes in urination, change in leg swelling. Patient discuss treatment plan with cardiology yesterday. - Exam Vitals: Temp Pulse Resp BP Pulse Ox 98.0 F 66 16 112/61 97 12/22/18 07:24 12/22/18 07:24 12/22/18 07:24 12/22/18 07:24 12/22/18 07:24 Exam: Gen: Vitals noted. No acute distress. Eyes: anicteric sclerae, moist conjunctivae, Pupils equal and reactive to light HENT: Multiple areas of ecchymosis and dried blood from fall. Noted on Forehead and left cheek. oropharynx clear with moist mucous membranes and no mucosal ulcerations; normal hard and soft palate Neck: Trachea midline; supple, no thyromegaly or lymphadenopathy Cardiac: RRR, +S1/S2, soft systolic murmur Pulmonary: Bibasilar wheezing, mild. No rales or crackles Abdomen: soft, nontender, no guarding. No masses or hepatosplenomegaly MSK: ROM intact, no joint swelling noted. Extremities: 1-2+ BLE edema, nontender calf, no cyanosis or clubbing. Right forearm bandaged due to fall Skin: Normal temperature, turgor and texture; noulcers or subcutaneous nodules. Dry scaly skin noted on BL shins Neuro: moves all extremities, no focal deficits. Muscle strength intact in all 4 extremities. Speech is appropriate without slurring Psych: Appropriate mood and behavior. A&Ox3 - Assessment and Plan (1) Syncope and collapse Current Visit: Yes Status: Acute Assessment and Plan: Presented with syncope and collapse. Fall with head trauma secondary to lightheadedness -Hx of heart failure with reduced ejection fraction 16% -SOB with minimal exertion -Discharged on diuretics on 12/19/18 after admission for CHF exacerbation -Possibly due to dehydration, secondary to diuretic use -Elevated troponin, possible demand ischemia/infarct that led to syncope -CXR, BL lower lobe infiltrates Plan: - Blood cultures pending - pro-calcitonin 0.20 - Monitor Labs, BMP, CBC - Cardiac and O2 monitoring - Troponins: 0.90>>0.77>>0.56 - q4h neuro checks - Hold coumadin - Cardiiology consult: Recommend ICD placement or lifevest prior to discharge (2) Elevated troponin Current Visit: Yes Status: Acute Assessment and Plan: Elevated troponin, 0.90>>0.77>>0.56 - Denies chest pain - Cardiology consulted: NSTEMI type I vs Type II, No further in-patient ischemic evaluation. Suspect demand ischemia - Cont ASA, Statin, BB (3) Heart failure with reduced ejection fraction Current Visit: Yes Status: Acute Assessment and Plan: HFrEF, recently admitted with acute exacerbation. MUGA Report 11/06/18 Gated EF 16%. Echo shows dilated LV Appears to be approaching euvolemic state on examination 2+ pitting edema remains, improved since the beginning of previous admission Plan: - Will continue BB - Continue home bumex - Cariology consult: Bumex as tolerated. Continue BB, kaden aceI, strict I&Os. WIll need ICD (4) Afib Current Visit: Yes Status: Chronic Assessment and Plan: Chronic afib on warfarin - Rate controlled with carvedilol - Cardiology: Restart coumadin if able, high CVA risk. (5) Type 2 diabetes mellitus Current Visit: Yes Status: Chronic Assessment and Plan: DM with hyperglycemia - ACHS accuchecks - Levemir. SSI (6) CAD (coronary artery disease) Current Visit: Yes Status: Chronic Assessment and Plan: CABG 2000. 5 stents, most recent 2017 -cont ASA, BB, Statin DVT Prophylaxis: SCDs - Time Spent with Patient Total time spent is greater than 50% in coordination of care (as documented) at patient's floor/unit and/or counseling patient: Internal Medicine: Result - Labs CBC & Chem 7: 12/22/18 06:57 12/22/18 06:57 Labs: Short CBC 12/22/18 Range/Units 06:57 WBC 7.6 (4.3-11.1) K/mcL Hgb 7.8 L (12.9-16.9) g/dL Hct 26.5 L (37.5-50.1) % Plt Count 201 (140-400) K/mcL Neutrophils # 6.1 (1.6-8.9) K/mcL BMP 12/22/18 06:57 Sodium 138 Potassium 4.6 Chloride 100 Carbon Dioxide 28 BUN 73 H Creatinine 1.76 H Glucose 90 Calcium 9.0 Cardiac Enzymes 12/21/18 Range/Units 10:00 Troponin I 0.56 H* (< 0.04) ng/mL - ABG Interpretation ABG results: PT/INR, D-dimer PT 25.5 Seconds (9.4-12.1) H 12/21/18 00:12 - Impressions Impressions Chest X-Ray 12/21/18 08:55 IMPRESSION: Stable mild congestive heart failure. Small left pleural effusion. D/ / Jodi Aguilar MD / Jodi Aguilar MD Interpreting Provider: Jodi Aguilar MD Consult Discharge Plan - Plan Referrals: Richelle Caballero [Primary Care Provider] - <Moise Stone - Last Filed: 12/22/18 14:49> Hospitalist Progress Note - Encounter Date of Encounter: 12/22/18 - Exam Vitals: Temp Pulse Resp BP Pulse Ox 98.0 F 66 16 112/61 97 12/22/18 07:24 12/22/18 07:24 12/22/18 07:24 12/22/18 07:24 12/22/18 07:24 - Time Spent with Patient Total time spent is greater than 50% in coordination of care (as documented) at patient's floor/unit and/or counseling patient: Internal Medicine: Result - Labs CBC & Chem 7: 12/22/18 06:57 12/22/18 06:57 Labs: Short CBC 12/22/18 Range/Units 06:57 WBC 7.6 (4.3-11.1) K/mcL Hgb 7.8 L (12.9-16.9) g/dL Hct 26.5 L (37.5-50.1) % Plt Count 201 (140-400) K/mcL Neutrophils # 6.1 (1.6-8.9) K/mcL BMP 12/22/18 06:57 Sodium 138 Potassium 4.6 Chloride 100 Carbon Dioxide 28 BUN 73 H Creatinine 1.76 H Glucose 90 Calcium 9.0 - ABG Interpretation ABG results: PT/INR, D-dimer PT 25.5 Seconds (9.4-12.1) H 12/21/18 00:12 - Attending Attestation I have seen and independently assessed this patient and I agree with plan as do cumented Plan Syncope and collapse in the setting of ischemic cardiomyopathy. Possibly 2/2 to diuresis and dehydration vs arrhythmia in absence of ICD Cardiology consulted and appreciate recs. Obtain orthostatics. Monitor volume status with diuresis. Plan for lifevest or ICD placement prior to discharge <Cristian Flood - Last Filed: 12/22/18 12:47> (3) Heart failure with reduced ejection fraction Qualifiers: Heart failure chronicity: chronic Qualified Code(s): I50.22 - Chronic systolic (congestive) heart failure (4) Afib Qualifiers: Atrial fibrillation type: paroxysmal Qualified Code(s): I48.0 - Paroxysmal atrial fibrillation (5) Type 2 diabetes mellitus Qualifiers: Diabetes mellitus long-term insulin use: without long term care administrator use Diabetes mellitus complication status: without complication Qualified Code(s): E11.9 - Type 2 diabetes mellitus without complications (6) CAD (coronary artery disease) Qualifiers: Coronary Disease-Associated Artery/Lesion type: [place] artery [place] vs. transplanted heart: [place] heart Associated angina: without angina Qualified Code(s): I25.10 - Atherosclerotic heart disease of [place] coronary artery wit hout angina pectoris
--- NOTE | 2018-12-22 10:28 | Cardiology Progress Note ---
Date of Encounter: 12/22/18 Time of Encounter: 10:26 Assessment and Plan (1) Syncope and collapse Current Visit: Yes Status: Acute Describes orthostasis cannot r/o arrhythmia. Known CMP with EF 16%. B/p low on my exam. S/p admission for IV diuresis with bumex and metolazone. Slow position change recommended. Caution with diuresis. Monitor telemetry. Rate controlled atrial firillation seen. No VT, bradycardia, or pauses. Orthostatic vitals. Discussed with Dr. Smith. Patient is recommended to have ICD placement for LifeVest prior to discharge. Patient is considering and will discuss with daughter if he would like transfer to tertiary center for ICD. (2) Elevated troponin Current Visit: Yes Status: Acute Troponin elevation, 0.90, 0.77, 0.56. S/p Fall. NSTEMI type I vs Type II. Denies chest pain although no chest pain in the past. Known ICMP. Ef 16% on recent muga scan 11/2018. 30-35% on TTE. Coumadin on hold d/t head trauma. Heparin was deferred. No further in-patient ischemic evaluation recommended. Suspect demand ischemia. He is chest pain free. Continue asa, statin, bb. (3) CAD (coronary artery disease) Current Visit: Yes Status: Acute H/o CABG in 1999 and 5 cardiac stents, most recently 2016. Continue asa, statin, bb. Qualifiers: Coronary Disease-Associated Artery/Lesion type: [place] artery [place] vs. transplanted heart: [place] heart Associated angina: without angina Qualified Code(s): I25.10 - Atherosclerotic heart disease of [place] coronary artery without angina pectoris (4) CHF exacerbation Current Visit: No Status: Acute H/o chronic HFrEF. EF 16% on muga and 30%-35% on TTE. Recent admission for IV diuresis. BLE edema improved. Continues to have 2+ pitting edema. Contimue bumex as tolerated. Continue bb. No aceI with hypotension and renal insufficiency. Strict I&O and daily weight. Will need ICD placement. Qualifiers: Heart failure type: systolic Qualified Code(s): I50.23 - Acute on chronic systolic (congestive) heart failure (5) Afib Current Visit: Yes Status: Chronic H/o PAF. Currently rate controlled afib. On carvedilol for rate control. Coumadin held on admission after fall. Due to high risk for CVA in the setting of CHF and CAD the patient is recommended to restart Coumadin if able. Noted hemoglobin decreased from yesterday. Chronic anemia noted. Continue to monitor. Qualifiers: Atrial fibrillation type: paroxysmal Qualified Code(s): I48.0 - Paroxysmal atrial fibrillation Discussion w patient/family: The assessment and plan as outlined above was discussed with the patient and/or family members who expressed understanding and agreement. All questions were answered. Thank you for involving us in the care of your patient. Please call with any questions. Subjective Principal diagnosis: syncope Interval history: Patient denies recurrent events. Abrasions on right arm with some bleeding. Complain of pain around abrasions on his face. Coumadin on hold secondary to head trauma. Objective Vital Signs, Last 4 Hours Temp Pulse Resp BP Pulse Ox 12/22/18 07:24 98.0 F 66 16 112/61 97 General: Conversant, No Apparent Distress HEENT: Atraumatic, Normocephaly, Mucus Membranes Moist Neck: No JVD, Normal carotid pulses Cardiac: Reg Rate and Rhythm, Normal S1 and S2, No Murmur Lungs: Normal Breath Sounds, No Wheeze, Rales, Rhonchi Neuro: Alert and responsive, No focal deficits noted Abdomen: Soft, Non-Tender Skin: No rashes noted on visualized skin Musculoskeletal: No Chest Wall Tenderness Extremities: No Clubbing, No Cyanosis, No Edema, Normal Pulses Results 12/22/18 06:57 12/22/18 06:57 Lab Results 12/21/18 12/22/18 12/22/18 10:00 06:57 06:57 WBC 7.6 Hgb 7.8 L Hct 26.5 L Plt Count 201 Sodium 138 Potassium 4.6 Chloride 100 Carbon Dioxide 28 BUN 73 H Creatinine 1.76 H Glucose 90 Calcium 9.0 Troponin I 0.56 H* - Imaging and Cardiology Echo: report reviewed - EKG Interpretation EKG results cardiology: personally reviewed Consult Discharge Plan - Plan Referrals: Richelle Caballero [Primary Care Provider] -
[2018-12-22] MEDS: Insulin DETEMIR 100 UNIT/ML X5UNITS SQ SCH (20:55)
[2018-12-23] MEDS ORDERED: Saline Nasal Spray 44 ML BOTTLE NS PRN (00:02)
[2018-12-23] MEDS ORDERED: Acetaminophen 325 MG TABLET PO PRN (06:00)
[2018-12-23 06:15] LABS: Hematocrit 26.3 % (37.5-50.1); Hemoglobin 7.7 g/dL (12.9-16.9); Mean Corpuscular HGB Conc 29.3 g/dL (31.6-35.5); Mean Corpuscular Hemoglobin 25.6 pg (28.0-33.3); Mean Corpuscular Volume 87.4 fL (83.0-100.0); Platelet Count 211 K/mcL (140-400); Red Blood Count 3.01 M/mcL (4.19-5.50); Red Cell Distribution Width 18.2 % (11.5-14.5); White Blood Count 7.6 K/mcL (4.3-11.1)
[2018-12-23 06:32] LABS: Calcium 8.8 mg/dL (8.6-10.3); Potassium 4.5 mEq/L (3.5-5.1)
--- NOTE | 2018-12-23 07:02 | Internal Med Progress Note ---
<Moise Stone - Last Filed: 12/23/18 13:02> Hospitalist Progress Note - Encounter Date of Encounter: 12/23/18 - Exam Vitals: Temp Pulse Resp BP Pulse Ox 98.8 F 68 16 118/58 98 12/23/18 06:48 12/23/18 06:48 12/23/18 06:48 12/23/18 06:48 12/23/18 06:48 - Time Spent with Patient Total time spent is greater than 50% in coordination of care (as documented) at patient's floor/unit and/or counseling patient: Internal Medicine: Result - Labs CBC & Chem 7: 12/23/18 05:49 12/23/18 05:49 Labs: Short CBC 12/23/18 Range/Units 05:49 WBC 7.6 (4.3-11.1) K/mcL Hgb 7.7 L (12.9-16.9) g/dL Hct 26.3 L (37.5-50.1) % Plt Count 211 (140-400) K/mcL BMP 12/23/18 05:49 Sodium 135 L Potassium 4.5 Chloride 101 Carbon Dioxide 27 BUN 77 H Creatinine 1.67 H Glucose 105 Calcium 8.8 - ABG Interpretation ABG results: PT/INR, D-dimer PT 25.5 Seconds (9.4-12.1) H 12/21/18 00:12 Consult Discharge Plan - Plan Referrals: Richelle Caballero [Primary Care Provider] - - Attending Attestation I have seen and independently assessed this patient and I agree with plan as documented Plan Syncope and collapse in the setting of ischemic cardiomyopathy. Possibly 2/2 to diuresis and dehydration vs arrhythmia in absence of ICD Cardiology consulted and appreciate recs. Obtain orthostatics. Monitor volume status with diuresis. Lifevest ordered and will be place in am Anemia in setting of ischemic cardiomyopathy. transfuse one unit PRBC and give lasix after transfusion. Keep hgb >8 <Cristian Flood - Last Filed: 12/23/18 14:10> Hospitalist Progress Note - Encounter Date of Encounter: 12/23/18 Time of Encounter: 09:33 - Subjective Interval History: Patient seen and examined. Overnight events. Afebrile. Patient is waiting for LifeVest prior to discharge. He will follow up with cardiology for ICD placement. He denies headache, shortness of breath, chest pain, abdominal pain, constipation, diarrhea, change in urination, increased lower extremity edema. - Exam Vitals: Temp Pulse Resp BP Pulse Ox 98.8 F 68 16 118/58 98 12/23/18 06:48 12/23/18 06:48 12/23/18 06:48 12/23/18 06:48 12/23/18 06:48 Exam: Gen: Vitals noted. No acute distress. Eyes: anicteric sclerae, moist conjunctivae, Pupils equal and reactive to light HENT: Multiple areas of ecchymosis and dried blood from fall. Noted on Forehead and left cheek. Neck: Trachea midline; supple, no thyromegaly or lymphadenopathy Cardiac: RRR, +S1/S2, soft systolic murmur Pulmonary: Bibasilar wheezing, mild. No rales or crackles Abdomen: soft, nontender, no guarding. No masses or hepatosplenomegaly MSK: ROM intact, no joint swelling noted. Extremities: 1-2+ BLE edema, nontender calf, no cyanosis or clubbing. Right forearm bandaged due to fall Skin: Normal temperature, turgor and texture; noulcers or subcutaneous nodules. Dry scaly skin noted on BL shins Neuro: moves all extremities, no focal deficits. Speech is appropriate without slurring Psych: Appropriate mood and behavior. A&Ox3 - Assessment and Plan (1) Syncope and collapse Current Visit: Yes Status: Acute Assessment and Plan: Presented with syncope and collapse. Fall with head trauma secondary to li ghtheadedness -Hx of heart failure with reduced ejection fraction 16% -SOB with minimal exertion -Discharged on diuretics on 12/19/18 after admission for CHF exacerbation -Possibly due to dehydration, secondary to diuretic use -Elevated troponin, possible demand ischemia/infarct that led to syncope -CXR, BL lower lobe infiltrates Plan: - Blood cultures pending - pro-calcitonin 0.20 - Monitor Labs, BMP, CBC - Cardiac and O2 monitoring - Troponins: 0.90>>0.77>>0.56 - q4h neuro checks - Restarting coumadin - Cardiiology consult: Recommend lifevest prior to discharge. ICD placement outpatient (2) Anemia Current Visit: Yes Status: Acute Assessment and Plan: Anemia - Hgb 7.7 - No gross bleeding - No lightheadedness, pallor Plan: - Transfuse 1 unit - goal Hgb >8 - 40 lasix IV after transfusion - Iron panel pending - FOBT ordered (3) Elevated troponin Current Visit: Yes Status: Acute Assessment and Plan: Elevated troponin, 0.90>>0.77>>0.56 - Denies chest pain - Cardiology consulted: NSTEMI type I vs Type II, No further in-patient ischemic evaluation. Suspect demand ischemia - Cont ASA, Statin, BB (4) Heart failure with reduced ejection fraction Current Visit: Yes Status: Acute Assessment and Plan: HFrEF, recently admitted with acute exacerbation. - MUGA Report 11/06/18 Gated EF 16%. Echo shows dilated LV - Appears to be approaching euvolemic state on examination - 2+ pitting edema remains, improved since the beginning of previous admission Plan: - Will continue BB - Continue home bumex - Cariology consult: Bumex as tolerated. Continue BB, kaden aceI, strict I&Os. WIll need ICD (5) Afib Current Visit: Yes Status: Chronic Assessment and Plan: Chronic afib on warfarin - Rate controlled with carvedilol - Restarting coumadin (6) Type 2 diabetes mellitus Current Visit: Yes Status: Chronic Assessment and Plan: DM with hyperglycemia - ACHS accuchecks - Levemir. SSI (7) CAD (coronary artery disease) Current Visit: Yes Status: Chronic Assessment and Plan: CABG 2000. 5 stents, most recent 2017 -cont ASA, BB, Statin DVT Prophylaxis: SCDs - Time Spent with Patient Total time spent is greater than 50% in coordination of care (as documented) at patient's floor/unit and/or counseling patient: Internal Medicine: Result - Labs CBC & Chem 7: 12/23/18 05:49 12/23/18 05:49 Labs: Short CBC 12/22/18 12/23/18 Range/Units 06:57 05:49 WBC 7.6 7.6 (4.3-11.1) K/mcL Hgb 7.8 L 7.7 L (12.9-16.9) g/dL Hct 26.5 L 26.3 L (37.5-50.1) % Plt Count 201 211 (140-400) K/mcL Neutrophils # 6.1 (1.6-8.9) K/mcL BMP 07/20/19 07/21/19 06:57 05:49 Sodium 138 135 L Potassium 4.6 4.5 Chloride 100 101 Carbon Dioxide 28 27 BUN 73 H 77 H Creatinine 1.76 H 1.67 H Glucose 90 105 Calcium 9.0 8.8 - ABG Interpretation ABG results: PT/INR, D-dimer PT 25.5 Seconds (9.4-12.1) H 12/21/18 00:12 <Cristian Flood - Last Filed: 12/23/18 14:10> (2) Anemia Qualifiers: Anemia type: unspecified type Qualified Code(s): D64.9 - Anemia, unspecified (4) Heart failure with reduced ejection fraction Qualifiers: Heart failure chronicity: chronic Qualified Code(s): I50.22 - Chronic systolic (congestive) heart failure (5) Afib Qualifiers: Atrial fibrillation type: paroxysmal Qualified Code(s): I48.0 - Paroxysmal atrial fibrillation (6) Type 2 diabetes mellitus Qualifiers: Diabetes mellitus predatory animal exterminator insulin use: without predatory animal exterminator use Diabetes mellitus complication status: without complication Qualified Code(s): E11.9 - Type 2 diabetes mellitus without complications (7) CAD (coronary artery disease) Qualifiers: Coronary Disease-Associated Artery/Lesion type: [place] artery [place] vs. transplanted heart: [place] heart Associated angina: without angina Qualified Code(s): I25.10 - Atherosclerotic heart disease of [place] coronary artery without angina pectoris
[2018-12-23] MEDS: Insulin LISPRO 300 UNITS/3 ML VIAL SQ SCH ×4 (08:13→20:37)
[2018-12-23] MEDS: *HR* Amiodarone 200 MG TABLET PO SCH (08:17)
[2018-12-23] MEDS: Bumetanide 1 MG TABLET PO SCH ×2 (08:17→16:25)
--- NOTE | 2018-12-23 10:26 | Cardiology Progress Note ---
Date of Encounter: 12/23/18 Time of Encounter: 10:22 Assessment and Plan (1) Syncope and collapse Current Visit: Yes Status: Acute Possible orthostasis cannot r/o arrhythmia. Known CMP with EF 16%. B/p low on my exam. S/p admission for IV diuresis with bumex and metolazone. Slow position change recommended. Caution with diuresis. Monitor telemetry. Rate controlled atrial firillation seen. No VT, bradycardia, or pauses. Orthostatic vitals. Discussed with Dr. Smith. Patient is recommended to have ICD placement for LifeVest prior to discharge. Patient would like to wear life vest until out-pt scheduled appt. Pt does not wish to be transferred to tertiary center. Live vest ordered and should be placed today if rep available. Cardiology will monitor peripherally. (2) Elevated troponin Current Visit: Yes Status: Acute Troponin elevation, 0.90, 0.77, 0.56. S/p Fall. NSTEMI type I vs Type II. Denies chest pain although no chest pain in the past. Known ICMP. Ef 16% on recent muga scan 11/2018. 30-35% on TTE. Coumadin on hold d/t head trauma. Heparin was deferred. No further in-patient ischemic evaluation recommended. Suspect demand ischemia. He is chest pain free. Continue asa, statin, bb. (3) CAD (coronary artery disease) Current Visit: Yes Status: Acute H/o CABG in 1999 and 5 cardiac stents, most recently 2016 (Dr. Pina). Continue asa, statin, bb. Qualifiers: Coronary Disease-Associated Artery/Lesion type: [place] artery [place] vs. transplanted heart: [place] heart Associated angina: without angina Qualified Code(s): I25.10 - Atherosclerotic heart disease of [place] coronary artery without angina pectoris (4) CHF exacerbation Current Visit: No Status: Acute H/o chronic HFrEF. EF 16% on muga and 30%-35% on TTE. Recent admission for IV diuresis. BLE edema improved. Continues to have 1+ pitting edema. Significantly improved from prior admission. Oral bumex was increased. Contimue bumex as tolerated. Continue bb. No aceI with hypotension and renal insufficiency. Strict I&O and daily weight. Pending EP evaluation for ICD placement. Pt initially declined but is now willing to have placed. Qualifiers: Heart failure type: systolic Qualified Code(s): I50.23 - Acute on chronic systolic (congestive) heart failure (5) Afib Current Visit: Yes Status: Chronic H/o PAF. Currently rate controlled afib. On carvedilol for rate control. Coumadin held on admission after fall. Due to high risk for CVA in the setting of CHF and CAD the patient is recommended to restart Coumadin if able. Noted hemoglobin decreased from yesterday. Chronic anemia noted. Continue to monitor. Qualifiers: Atrial fibrillation type: paroxysmal Qualified Code(s): I48.0 - Paroxysmal atrial fibrillation Discussion w patient/family: The assessment and plan as outlined above was discussed with the patient and/or family members who expressed understanding and agreement. All questions were answered. Thank you for involving us in the care of your patient. Please call with any questions. Subjective Principal diagnosis: syncope Interval history: Patient denies recurrent events. Abrasions on right arm with some bleeding. Complain of pain around abrasions on his face. Coumadin on hold secondary to head trauma. Objective Vital Signs, Last 4 Hours Temp Pulse Resp BP Pulse Ox 12/23/18 06:48 98.8 F 68 16 118/58 98 General: Conversant, No Apparent Distress HEENT: Atraumatic, Normocephaly, Mucus Membranes Moist Neck: No JVD, Normal carotid pulses Cardiac: Other (Irregular) Lungs: Normal Breath Sounds, No Wheeze, Rales, Rhonchi Neuro: Alert and responsive, No focal deficits noted Abdomen: Soft, Non-Tender Skin: Other (Multiple abrasions due to fall and face arms and legs) Musculoskeletal: No Chest Wall Tenderness Extremities: No Clubbing, No Cyanosis, Normal Pulses, Other (1 pitting edema bilateral lower extremities) Results 12/23/18 05:49 12/23/18 05:49 Lab Results 12/23/18 12/23/18 05:49 05:49 WBC 7.6 Hgb 7.7 L Hct 26.3 L Plt Count 211 Sodium 135 L Potassium 4.5 Chloride 101 Carbon Dioxide 27 BUN 77 H Creatinine 1.67 H Glucose 105 Calcium 8.8 - Imaging and Cardiology Echo: report reviewed Consult Discharge Plan - Plan Referrals: Richelle Caballero [Primary Care Provider] -
[2018-12-23 13:26] LABS: Immature Reticulocyte % 38.6 % (11.0-38.0); Retculocyte # 0.06 M/mcL (0.05-0.10)
[2018-12-23 13:46] LABS: Iron 28 mcg/dL (65-175)
[2018-12-23 14:05] LABS: Ferritin 49 ng/mL (20-250)
[2018-12-23] MEDS ORDERED: 0.9 % Sodium Chloride 250 ML ONE (14:15)
[2018-12-23 14:22] LABS: Folate > 22.3 ng/mL (3.0-16.0); Vitamin B12 626 pg/mL (250-1100)
[2018-12-23] MEDS ORDERED: Warfarin perPT PO PRN ×2 (18:00)
[2018-12-23] MEDS ORDERED: Furosemide 40 MG/4 ML VIAL IVP ONE (18:00)
[2018-12-23] MEDS ORDERED: *HR* Warfarin 3 MG TABLET PO SCH (18:00)
[2018-12-23] MEDS ORDERED: *HR* Warfarin 3 MG TABLET PO ONE (18:00)
[2018-12-23] MEDS: Insulin DETEMIR 100 UNIT/ML X5UNITS SQ SCH (20:36)
[2018-12-23 21:26] LABS: Hematocrit 28.6 % (37.5-50.1); Hemoglobin 8.8 g/dL (12.9-16.9)
[2018-12-24 07:27] LABS: Basophils % 0.3 %; Eosinophils % 0.5 %; Hematocrit 29.1 % (37.5-50.1); Hemoglobin 8.7 g/dL (12.9-16.9); Immature Granulocytes % 0.5 % (0-4); Lymphocytes # 0.5 K/mcL (0.6-4.6); Lymphocytes % 6.7 %; Mean Corpuscular HGB Conc 29.9 g/dL (31.6-35.5); Mean Corpuscular Volume 87.1 fL (83.0-100.0); Mean Platelet Volume 9.6 fL (9.4-12.4); Monocytes # 0.8 K/mcL (0.0-1.3); Monocytes % 10.3 %; Neutrophils # 5.9 K/mcL (1.6-8.9); Platelet Count 219 K/mcL (140-400); Red Blood Count 3.34 M/mcL (4.19-5.50); Red Cell Distribution Width 17.9 % (11.5-14.5); Segmented Neutrophils % 81.7 %; White Blood Count 7.3 K/mcL (4.3-11.1)
[2018-12-24 07:36] LABS: INR 1.6; Prothrombin Time 18.1 Seconds (9.4-12.1)
[2018-12-24 07:41] LABS: Potassium 4.4 mEq/L (3.5-5.1)
[2018-12-24] MEDS: Insulin LISPRO 300 UNITS/3 ML VIAL SQ SCH ×4 (09:28→21:50)
[2018-12-24] MEDS: *HR* Amiodarone 200 MG TABLET PO SCH (09:34)
[2018-12-24] MEDS: Bumetanide 1 MG TABLET PO SCH ×2 (09:34→16:50)
--- NOTE | 2018-12-24 10:13 | Internal Med Progress Note ---
<Cristian Flood - Last Filed: 12/24/18 16:12> Hospitalist Progress Note - Encounter Date of Encounter: 12/24/18 Time of Encounter: 10:10 - Subjective Interval History: Patient seen and examined. Overnight events. Tolerated transfusion well with no cold medications. Restarted Coumadin yesterday. Afebrile. Patient denies lightheadedness, headache, shortness of breath, chest pain, abdominal pain, constipation, diarrhea, changes in urination. - Exam Vitals: Temp Pulse Resp BP Pulse Ox 98.6 F 66 16 106/77 98 12/24/18 07:10 12/24/18 07:10 12/24/18 07:10 12/24/18 07:10 12/24/18 07:10 Exam: Gen: Vitals noted. No acute distress. Eyes: anicteric sclerae, moist conjunctivae, Pupils equal and reactive to light HENT: Multiple areas of ecchymosis and dried blood from fall. Noted on Forehead and left cheek. Neck: Trachea midline; supple, no thyromegaly or lymphadenopathy Cardiac: RRR, +S1/S2, soft systolic murmur Pulmonary: Bibasilar wheezing, mild. No rales or crackles Abdomen: soft, nontender, no guarding. No masses or hepatosplenomegaly MSK: ROM intact, no joint swelling noted. Extremities: 1-2+ BLE edema, nontender calf, no cyanosis or clubbing. Right forearm bandaged Skin: Normal temperature, turgor and texture; noulcers or subcutaneous nodules. Dry scaly skin noted on BL shins Neuro: moves all extremities, no focal deficits. Speech is appropriate without slurring Psych: Appropriate mood and behavior. A&Ox3 - Assessment and Plan (1) Syncope and collapse Current Visit: Yes Status: Acute Assessment and Plan: Presented with syncope and collapse. Fall with head trauma secondary to lightheadedness -Hx of heart failure with reduced ejection fraction 16% -SOB with minimal exertion -Discharged on diuretics on 12/19/18 after admission for CHF exacerbation -Possibly due to dehydration, secondary to diuretic use -Elevated troponin, possible demand ischemia/infarct that led to syncope -CXR, BL lower lobe infiltrates Plan: - Blood cultures pending - pro-calcitonin 0.20 - Monitor Labs, BMP, CBC - Cardiac and O2 monitoring - Troponins: 0.90>>0.77>>0.56 - q4h neuro checks - Restarting coumadin - Cardiiology consult: Recommend lifevest prior to discharge. ICD placement outpatient (2) Anemia Current Visit: Yes Status: Acute Assessment and Plan: Anemia - Hgb 8.7 - No gross bleeding - No lightheadedness, pallor Plan: - Transfused 1 unit 12/23/18 - goal Hgb >8 - Iron low, Ferritin WNL - FOBT ordered (3) Elevated troponin Current Visit: Yes Status: Acute Assessment and Plan: Elevated troponin, 0.90>>0.77>>0.56 - Denies chest pain - Cardiology consulted: NSTEMI type I vs Type II, No further in-patient ischemic evaluation. Suspect demand ischemia - Cont ASA, Statin, BB (4) Heart failure with reduced ejection fraction Current Visit: Yes Status: Acute Assessment and Plan: HFrEF, recently admitted with acute exacerbation. - MUGA Report 11/06/18 Gated EF 16%. Echo shows dilated LV - Appears to be approaching euvolemic state on examination - 2+ pitting edema remains, improved since the beginning of previous admission Plan: - Will continue BB - Continue home bumex - Cariology consult: Bumex as tolerated. Continue BB, kaden aceI, strict I&Os. WIll need ICD (5) Afib Current Visit: Yes Status: Chronic Assessment and Plan: Chronic afib on warfarin - Rate controlled with carvedilol - On Coumadin (6) Type 2 diabetes mellitus Current Visit: Yes Status: Chronic Assessment and Plan: DM with hyperglycemia - ACHS accuchecks - Levemir. SSI (7) CAD (coronary artery disease) Current Visit: Yes Status: Chronic Assessment and Plan: CABG 2000. 5 stents, most recent 2017 -cont ASA, BB, Statin DVT Prophylaxis: Coumadin SCDs - Time Spent with Patient Total time spent is greater than 50% in coordination of care (as documented) at patient's floor/unit and/or counseling patient: Internal Medicine: Result - Labs CBC & Chem 7: 12/24/18 06:43 12/24/18 06:43 Labs: Short CBC 12/23/18 12/24/18 Range/Units 21:02 06:43 WBC 7.3 (4.3-11.1) K/mcL Hgb 8.8 L 8.7 L (12.9-16.9) g/dL Hct 28.6 L 29.1 L (37.5-50.1) % Plt Count 219 (140-400) K/mcL Neutrophils # 5.9 (1.6-8.9) K/mcL [facility] 12/24/18 06:43 Sodium 137 Potassium 4.4 Chloride 98 Carbon Dioxide 28 BUN 72 H Creatinine 1.72 H Glucose 75 Calcium 9.0 - ABG Interpretation ABG results: PT/INR, D-dimer PT 18.1 Seconds (9.4-12.1) H 12/24/18 06:43 Consult Discharge Plan - Plan Referrals: Richelle Caballero [Primary Care Provider] - <Moise Stone - Last Filed: 12/24/18 16:27> Hospitalist Progress Note - Encounter Date of Encounter: 12/24/18 - Exam Vitals: Temp Pulse Resp BP Pulse Ox 98.3 F 68 14 121/70 96 12/24/18 15:10 12/24/18 15:10 12/24/18 15:10 12/24/18 15:10 12/24/18 15:10 - Time Spent with Patient Total time spent is greater than 50% in coordination of care (as documented) at patient's floor/unit and/or counseling patient: Internal Medicine: Result - Labs CBC & Chem 7: 12/24/18 06:43 12/24/18 06:43 Labs: Short CBC 12/23/18 12/24/18 Range/Units 21:02 06:43 WBC 7.3 (4.3-11.1) K/mcL Hgb 8.8 L 8.7 L (12.9-16.9) g/dL Hct 28.6 L 29.1 L (37.5-50.1) % Plt Count 219 (140-400) K/mcL Neutrophils # 5.9 (1.6-8.9) K/mcL [facility] 12/24/18 06:43 Sodium 137 Potassium 4.4 Chloride 98 Carbon Dioxide 28 BUN 72 H Creatinine 1.72 H Glucose 75 Calcium 9.0 - ABG Interpretation ABG results: PT/INR, D-dimer PT 18.1 Seconds (9.4-12.1) H 12/24/18 06:43 - Attending Attestation I have seen and independently assessed this patient and I agree with plan as documented Plan Syncope and collapse in the setting of ischemic cardiomyopathy. Possibly 2/2 to diuresis and dehydration vs arrhythmia in absence of ICD Cardiology consulted and appreciate recs. Obtain orthostatics. Monitor volume status with diuresis. Lifevest ordered and planned for placement today Anemia in setting of ischemic cardiomyopathy. s/p 1 unit PRBC. Stable <Cristian Flood - Last Filed: 12/24/18 16:12> (2) Anemia Qualifiers: Anemia type: unspecified type Qualified Code(s): D64.9 - Anemia, unspecified (4) Heart failure with reduced ejection fraction Qualifiers: Heart failure chronicity: chronic Qualified Code(s): I50.22 - Chronic systolic (congestive) heart failure (5) Afib Qualifiers: Atrial fibrillation type: paroxysmal Qualified Code(s): I48.0 - Paroxysmal atrial fibrillation (6) Type 2 diabetes mellitus Qualifiers: Diabetes mellitus terminologist insulin use: without terminologist use Diabetes mellitus complication status: without complication Qualified Code(s): E11.9 - Type 2 diabetes mellitus without complications (7) CAD (coronary artery disease) Qualifiers: Coronary Disease-Associated Artery/Lesion type: [place] artery [place] vs. transplanted heart: [place] heart Associated angina: without angina Qualified Code(s): I25.10 - Atherosclerotic heart disease of [place] coronary artery without angina pectoris
--- NOTE | 2018-12-24 10:36 | Electrocardiograph Report ---
[address] [place], [place] [address] Test Date: 2018-12-21 Pat Name: Randolph Elliott Department: 111 Room: 2NE29 Gender: M Vault Custodian: : 1950 Requested By: Phil Thompson Order Number: [id number] Reading MD: Carlton Painting Measurements Intervals [place] Rate: 76 P: [place]: 0 QRS: 17 QRSD: 124 T: 174 QT: 432 QTc: 463 Interpretive Statements ATRIAL FIBRILLATION LEFT BUNDLE BRANCH BLOCK Electronically Signed On 12-24-2018 10:34:31 EDT by Carlton Painting
--- NOTE | 2018-12-24 14:11 | Event Note ---
Date of Encounter: 12/24/18 Time of Encounter: 14:10 - Cardiology Event Note Lifevest order pending prior to DC. F/u arranged with Cardiology. Re-consult PRN.
[2018-12-24] MEDS ORDERED: *HR* Warfarin 2 MG TABLET PO SCH (18:00)
[2018-12-24] MEDS: Insulin DETEMIR 100 UNIT/ML X5UNITS SQ SCH (21:50)
--- NOTE | 2018-12-25 07:30 | Internal Med Progress Note ---
Hospitalist Progress Note - Encounter Date of Encounter: 12/25/18 Time of Encounter: 07:28 - Subjective Interval History: Patient seen and examined. Afebrile. No Overnight events. Denies shortness of breath. Patient sitting comfortably in chair eating breakfast. Awaiting lifevest before discharge today. Denies fever, chills, headache, chest pain, abdominal pain, constipation, diarrhea, change in urination. - Exam Vitals: Temp Pulse Resp BP Pulse Ox 97.5 F L 61 19 106/88 93 12/25/18 06:36 12/25/18 06:36 12/25/18 03:25 12/25/18 06:36 12/25/18 06:36 Exam: Gen: Vitals noted. No acute distress. Eyes: anicteric sclerae, moist conjunctivae, Pupils equal and reactive to light HENT: Multiple areas of ecchymosis and dried blood from fall. Noted on Forehead and left cheek. Neck: Trachea midline; supple, no thyromegaly or lymphadenopathy Cardiac: RRR, +S1/S2, soft systolic murmur Pulmonary: Bibasilar wheezing, mild. No rales or crackles Abdomen: soft, nontender, no guarding. No masses or hepatosplenomegaly MSK: ROM intact, no joint swelling noted. Extremities: 1-2+ BLE edema, nontender calf, no cyanosis or clubbing. Right forearm bandaged Skin: Normal temperature, turgor and texture; noulcers or subcutaneous nodules. Dry scaly skin noted on BL shins Neuro: moves all extremities, no focal deficits. Speech is appropriate without slurring Psych: Appropriate mood and behavior. A&Ox3 - Assessment and Plan (1) Syncope and collapse Current Visit: Yes Status: Acute Assessment and Plan: Presented with syncope and collapse. Fall with head trauma secondary to lightheadedness -Hx of heart failure with reduced ejection fraction 16% -SOB with minimal exertion -Discharged on diuretics on 12/19/18 after admission for CHF exacerbation -Possibly due to dehydration, secondary to diuretic use -Elevated troponin, possible demand ischemia/infarct that led to syncope -CXR, BL lower lobe infiltrates Plan: - Blood cultures pending - pro-calcitonin 0.20 - Monitor Labs, BMP, CBC - Cardiac and O2 monitoring - Troponins: 0.90>>0.77>>0.56 - q4h neuro checks - Restarting coumadin - Cardiiology consult: Recommend lifevest prior to discharge. ICD placement o utpatient (2) Anemia Current Visit: Yes Status: Acute Assessment and Plan: Anemia - Hgb 8.7 - No gross bleeding - No lightheadedness, pallor Plan: - Transfused 1 unit 12/23/18 - goal Hgb >8 - Iron low, Ferritin WNL - FOBT ordered (3) Elevated troponin Current Visit: Yes Status: Acute Assessment and Plan: Elevated troponin, 0.90>>0.77>>0.56 - Denies chest pain - Cardiology consulted: NSTEMI type I vs Type II, No further in-patient ischemic evaluation. Suspect demand ischemia - Cont ASA, Statin, BB (4) Heart failure with reduced ejection fraction Current Visit: Yes Status: Acute Assessment and Plan: HFrEF, recently admitted with acute exacerbation. - MUGA Report 11/06/18 Gated EF 16%. Echo shows dilated LV - Appears to be approaching euvolemic state on examination - 2+ pitting edema remains, improved since the beginning of previous admission Plan: - Will continue BB - Continue home bumex - Cariology consult: Bumex as tolerated. Continue BB, kaden aceI, strict I&Os. WIll need ICD (5) Afib Current Visit: Yes Status: Chronic Assessment and Plan: Chronic afib on warfarin - Rate controlled with carvedilol - On Coumadin (6) Type 2 diabetes mellitus Current Visit: Yes Status: Chronic Assessment and Plan: DM with hyperglycemia - ACHS accuchecks - Levemir. SSI (7) CAD (coronary artery disease) Current Visit: Yes Status: Chronic Assessment and Plan: CABG 2000. 5 stents, most recent 2017 -cont ASA, BB, Statin DVT Prophylaxis: Coumadin SCDs - Time Spent with Patient Total time spent is greater than 50% in coordination of care (as documented) at patient's floor/unit and/or counseling patient: Internal Medicine: Result - Labs CBC & Chem 7: 12/24/18 06:43 12/24/18 06:43 Labs: Short CBC 12/24/18 Range/Units 06:43 WBC 7.3 (4.3-11.1) K/mcL Hgb 8.7 L (12.9-16.9) g/dL Hct 29.1 L (37.5-50.1) % Plt Count 219 (140-400) K/mcL Neutrophils # 5.9 (1.6-8.9) K/mcL BMP 12/24/18 06:43 Sodium 137 Potassium 4.4 Chloride 98 Carbon Dioxide 28 BUN 72 H Creatinine 1.72 H Glucose 75 Calcium 9.0 - ABG Interpretation ABG results: PT/INR, D-dimer PT 18.1 Seconds (9.4-12.1) H 12/24/18 06:43 Consult Discharge Plan - Plan Referrals: Richelle Caballero [Primary Care Provider] - (2) Anemia Qualifiers: Anemia type: unspecified type Qualified Code(s): D64.9 - Anemia, unspecified (4) Heart failure with reduced ejection fraction Qualifiers: Heart failure chronicity: chronic Qualified Code(s): I50.22 - Chronic systol ic (congestive) heart failure (5) Afib Qualifiers: Atrial fibrillation type: paroxysmal Qualified Code(s): I48.0 - Paroxysmal atrial fibrillation (6) Type 2 diabetes mellitus Qualifiers: Diabetes mellitus fpc insulin use: without regional intermodal truck driver use Diabetes mellitus complication status: without complication Qualified Code(s): E11.9 - Type 2 diabetes mellitus without complications (7) CAD (coronary artery disease) Qualifiers: Coronary Disease-Associated Artery/Lesion type: [place] artery [place] vs. transplanted heart: [place] heart Associated angina: without angina Qualified Code(s): I25.10 - Atherosclerotic heart disease of [place] coronary artery without angina pectoris
[2018-12-25] MEDS: Insulin LISPRO 300 UNITS/3 ML VIAL SQ SCH ×2 (08:29→11:13)
[2018-12-25] MEDS: *HR* Amiodarone 200 MG TABLET PO SCH (08:30)
[2018-12-25] MEDS: Bumetanide 1 MG TABLET PO SCH (08:30)
--- NOTE | 2018-12-25 09:30 | Discharge Summary ---
<Moise Stone - Last Filed: 12/25/18 12:15> Orders not resulted at time of discharge: Pending orders 12/20/18 23:09 Culture,Blood [BC] Routine 12/23/18 12:28 Occult Blood,Stool [BF] Routine 12/26/18 04:00 PT/INR [Prothrombin Time INR] [COAG] AM 0400 12/27/18 04:00 PT/INR [Prothrombin Time INR] [COAG] AM 0400 Date of Encounter: 12/25/18 Hospital course: Mr. Elliott is a 68 year old male - Time Spent with Patient Total time spent providing and/or coordinating discharge services: - Discharge Medications Prescriptions: Continued Amiodarone [Cordarone] 200 mg PO DAILY Carvedilol [Coreg] 6.25 mg PO BID Lisinopril 2.5 mg PO DAILY Warfarin [Coumadin] 3 mg PO SUTUTHSA@1800 GlipiZIDE [Glipizide Xl] 5 mg PO DAILY Aspirin 81 mg PO DAILY Warfarin [Coumadin] 1.5 mg PO MOWEFR@1800 Multivitamin [One-Daily Multi-Vitamin] 1 tab PO DAILY Bumetanide [Bumex] 2 mg PO BIDDIURETIC #120 tablet Home Medications: Amiodarone [Cordarone] 200 mg PO DAILY 09/07/18 [History] Carvedilol [Coreg] 6.25 mg PO BID 09/07/18 [History] Lisinopril 2.5 mg PO DAILY 09/07/18 [History] Warfarin [Coumadin] 3 mg PO SUTUTHSA@1800 09/07/18 [History] GlipiZIDE [Glipizide Xl] 5 mg PO DAILY 09/09/18 [History] Aspirin 81 mg PO DAILY 11/07/18 [History] Warfarin [Coumadin] 1.5 mg PO MOWEFR@1800 12/10/18 [History] Multivitamin [One-Daily Multi-Vitamin] 1 tab PO DAILY 12/12/18 [History] Bumetanide [Bumex] 2 mg PO BIDDIURETIC #120 tablet 12/19/18 [Rx] Allergies/Adverse Reactions: Allergy/AdvReac Type Severity Reaction Status Date / Time No Known Allergies Allergy Verified 12/21/18 18:57 Date of admission: 12/20/18 20:29 Primary care physician: Richelle Caballero Consults: 12/21/18 11:12 Consult to Cardiology [CONS] Routine Comment: Consulting Provider: Cardiology Patricia Reason for Consult: EF 16%, presented with syncopal edpisode. Assess for need for ICD. Hx of Afib, taken off of anticoagulation following fall with head trauma. Call Completed: No - Constitutional Vitals: Temp Pulse Resp BP Pulse Ox 97.5 F L 67 19 107/68 92 12/25/18 06:36 12/25/18 10:37 12/25/18 03:25 12/25/18 10:37 12/25/18 10:37 - Patient Status Disposition: Home, Self-Care Condition: Fair - Discharge Instructions Instructions: Syncope (GEN), Anemia (GEN), Heart Failure, Steerer (GEN) Follow Up With: Richelle Caballero [Primary Care Provider] - (Follow-up with primary care in 5-7 days. ) Lilibeth Smith [Partnered Physician] - (If Cardiology office does not call withing two days, please call available number.) Noel Gomez MD [Partnered Physician] - (Outpatient follow up for colonoscopy: Indication- anemia.) - Attending Attestation I have seen and independently assessed this patient and I agree with plan as documented Exam Gen. NAD CVS. S1 S2 WNL Resp. CTAB Ext. edema improved Plan Syncope and collapse in the setting of ischemic cardiomyopathy. Possibly 2/2 to diuresis and dehydration vs arrhythmia in absence of ICD Cardiology consulted and appreciate recs. Obtain orthostatics. Monitor volume status with diuresis. Lifevest ordered and placed Anemia in setting of ischemic cardiomyopathy. s/p 1 unit PRBC. Stable <Cristian Flood L - Last Filed: 12/25/18 16:51> - NOTES TO OUTPATIENT PROVIDER Notes to Outpatient Provider: Pt treated for syncopal episode. Presvious admission for CHF exacerbation revealed EF of 16%. Need for ICD placement. Pt discharged with LifeVest, will wear until ICD placement. Follow-up arranged with cardiology. Pt needs colonoscpy performed outpatient due to anemia. Date of Encounter: 12/25/18 Time of Encounter: 09:27 - Discharge Diagnosis (1) Syncope and collapse Priority: Primary Status: Acute (2) Anemia Priority: Secondary Status: Chronic Qualifiers: Anemia type: unspecified type Qualified Code(s): D64.9 - Anemia, unspecified (3) Elevated troponin Priority: Secondary Status: Chronic (4) Heart failure with reduced ejection fraction Priority: Primary Status: Chronic Qualifiers: Heart failure chronicity: chronic Qualified Code(s): I50.22 - Chronic systolic (congestive) heart failure (5) Afib Priority: Secondary Status: Chronic Qualifiers: Atrial fibrillation type: paroxysmal Qualified Code(s): I48.0 - Paroxysmal atrial fibrillation (6) Type 2 diabetes mellitus Priority: Secondary Status: Chronic Qualifiers: Diabetes mellitus salvage determiner insulin use: without long-term use Diabetes mellitus complication status: without complication Qualified Code(s): E11.9 - Type 2 diabetes mellitus without complications (7) CAD (coronary artery disease) Priority: Secondary Status: Chronic Qualifiers: Coronary Disease-Associated Artery/Lesion type: [place] artery [place] vs. transplanted heart: [place] heart Associated angina: without angina Qualified Code(s): I25.10 - Atherosclerotic heart disease of [place] coronary artery without angina pectoris Hospital course: Mr. Elliott is a 68 year old male with a past medical history of CAD status post CABG and multiple stents, ischemic cardiomyopathy with ejection fraction of 16%, atrial fibrillation on Coumadin, and type 2 diabetes. He presented to the hospital after became lightheaded and fell. He denied losing consciousness. He first was seen at [facility], a CT of the head there was negative. He was then sent to [place]. He presented with multiple abrasions on his face on the legs. Denied chest pain or shortness of breath. He had been discharged from [place] 2 days prior to this presentation when he was seen and treated for acute on chronic congestive heart failure. He was treated at that time the diuresis. He had been discharged with a follow-up with outpatient cardiology to discuss ICD placement. Cardiology was consulted on this admission. Patient is to have ICD placed at a later date. On this admission, he was kept on his same medications without any changes. He was transfused 1 unit of packed red blood cells during his stay due to hemoglobin less than 8.0. Tolerated transfusion well with no consultations. He was discharged on previous medications in addition to a LifeVest that he will wear until ICD placement. Dx: Syncope and collapse, secondary to CHF vs Diuresis Pertinent tests/consults: - Cardiology Follow up: - Cardiology - Primary care Tests pending: None Med changes: None Mental status: awake, fully oriented Code status: Full Code - Time Spent with Patient Total time spent providing and/or coordinating discharge services: Date of admission: 12/20/18 20:29 Primary care physician: Richelle Caballero Consults: 12/21/18 11:12 Consult to Cardiology [CONS] Routine Comment: Consulting Provider: Cardiology Patricia Reason for Consult: EF 16%, presented with syncopal edpisode. Assess for need for ICD. Hx of Afib, taken off of anticoagulation following fall with head trauma. Call Completed: No Discharging clinician: Cristian Flood Anticipated date of discharge: 12/25/18 - Constitutional Vitals: Temp Pulse Resp BP Pulse Ox 97.5 F L 61 19 106/88 93 12/25/18 06:36 12/25/18 06:36 12/25/18 03:25 12/25/18 06:36 12/25/18 06:36 Exam: Gen: Vitals noted. No acute distress. Eyes: anicteric sclerae, moist conjunctivae, Pupils equal and reactive to light HENT: Multiple areas of ecchymosis and dried blood from fall. Noted on Forehead and left cheek. Neck: Trachea midline; supple, no thyromegaly or lymphadenopathy Cardiac: RRR, +S1/S2, soft systolic murmur Pulmonary: Bibasilar wheezing, mild. No rales or crackles Abdomen: soft, nontender, no guarding. No masses or hepatosplenomegaly MSK: ROM intact, no joint swelling noted. Extremities: 1-2+ BLE edema, nontender calf, no cyanosis or clubbing. Right forearm bandaged Skin: Normal temperature, turgor and texture; noulcers or subcutaneous nodules. Dry scaly skin noted on BL shins Neuro: moves all extremities, no focal deficits. Speech is appropriate without slurring Psych: Appropriate mood and behavior. A&Ox3
[2018-12-25 09:47] LABS: Hematocrit 30.2 % (37.5-50.1); Hemoglobin 8.9 g/dL (12.9-16.9); Mean Corpuscular HGB Conc 29.5 g/dL (31.6-35.5); Mean Corpuscular Hemoglobin 26.1 pg (28.0-33.3); Mean Corpuscular Volume 88.6 fL (83.0-100.0); Mean Platelet Volume 9.4 fL (9.4-12.4); Platelet Count 235 K/mcL (140-400); Red Blood Count 3.41 M/mcL (4.19-5.50); Red Cell Distribution Width 18.4 % (11.5-14.5); White Blood Count 7.7 K/mcL (4.3-11.1)
[2018-12-25 09:56] LABS: INR 1.7
[2018-12-25 10:06] LABS: Potassium 4.4 mEq/L (3.5-5.1)
[2018-12-25 10:40] VITALS: BP 107/68
[2018-12-25] MEDS ORDERED: *HR* Warfarin 3 MG TABLET PO ONE (18:00)
== END 2018-12-25 14:36 | disposition home or self-care (01) ==
LOC: 2NENU
PROVIDERS: ADMIT Student in an Organized Health Care Education/Training Program; ATTEND Student in an Organized Health Care Education/Training Program

== ENCOUNTER 2019-02-11 14:58 | Observation (INO) ==
[2019-02-11] MEDS ORDERED: Naloxone 0.4 MG/ML INJ IVP PRN (21:52)
--- NOTE | 2019-02-11 21:52 | Internal Med History&Physical ---
Date of Encounter: 02/12/19 Time of Encounter: 21:47 Internal Medicine - H&P: HPI Chief complaint: shortness of breath Admitted From: Home Plans for Post Hospital Care: Home History of present illness: Mr. Elliott is a 68 year old male with past medical history of ischemic cardiomyopathy, HFrEF 16% with metronic ICD, atrial fibrillation on warfarin, type 2 diabetes, hypertension, chronic kidney disease stage III presented to the ED for chief complaint of syncope. [id number] incontinent occurred 9:20 p.m. Patient stated that he was in the car and then when he stood up the son has eyes became lightheadedness and fell sideways. Patient does not remember any other episodes. Prior to the episode patient denied any nausea, vomiting, chest pain, shortness of breath, bowel or urinary incontinence. Patient reported post beginning consciousness after a few minutes he denied having any headache, incontinance, visual changes, weakness, nausea, vomiting or chest pain. Patient is daughter was contacted and stated that the patient has had 5-6 falls discussed year. patient recently underwent ICD placement 2 weeks ago with one of the leads was able to be placed properly and will need to re-intervention done in February. Patient otherwise denies any changes in medication and continues to be compliant. Personally reviewed patient was medical, surgical, family and social history. Patient continues to not smoke, drink, do drugs. Patient does have positive family history of stroke from his maternal side. Past Med Surg Social Fam HX - Past Medical History Medical history: atrial fibrillation, CHF, coronary artery disease, diabetes, hypertension, myocardial infarction, renal disease Psychiatric history: no psych history - Past Surgical History Surgical History: angioplasty/stent, coronary bypass (CABG) Additional surgical history: Cardiac cath with stent placement. CABG - Social History Smoking Status: Never smoker Smokeless Tobacco Status: No Alcohol use: none Drug use: none - Family History Mother Living Status: Hx Family Cardiac Disorders: Yes Father Living Status: Hx Family Cardiac Disorders: Yes Internal Medicine - H&P: Meds Amiodarone [Cordarone] 200 mg PO DAILY 09/07/18 [History] Carvedilol [Coreg] 6.25 mg PO BID 09/07/18 [History] Lisinopril 2.5 mg PO DAILY 09/07/18 [History] Warfarin [Coumadin] 3 mg PO Q48H 09/07/18 [History] GlipiZIDE [Glipizide Xl] 5 mg PO DAILY 09/09/18 [History] Aspirin 81 mg PO DAILY 11/07/18 [History] Multivitamin [One-Daily Multi-Vitamin] 1 tab PO DAILY 12/12/18 [History] Bumetanide [Bumex] 2 mg PO BIDDIURETIC #120 tablet 12/19/18 [Rx] Warfarin Sodium 1.5 mg PO Q48H 02/11/19 [History] Allergy/AdvReac Type Severity Reaction Status Date / Time No Known Allergies Allergy Verified 02/11/19 21:32 All Systems PM: A 10-system review of systems was performed and is negative for pertinent findings except as documented above in the HPI. Review of systems: General: No unintentional weightloss, No fever Head: No headahce, No injury. Ears: No discharge, No earache Eyes: No drainage, No eye pain Mouth and Throat: No new ulcers, No pain Nose and Sinus: No new congestion, No pain, Respiratory: No cough, No sputum production, No dyspnea Cardiovascular: No chest pain, No palpitations. Gastrointestinal: No nausea, No vomiting. No abdominal pain. Genital Tract: No discharge, No pain Urinary Tract: No dysuria, No discharge. MSK: No new/worsening joint pain, No new/worsening muscle ache. Endocrine: No cold intolerance, No polyuria Psychological: No suicidal, No homocidal ideation. - Constitutional Vitals: Temp Pulse Resp BP Pulse Ox 98.0 F 73 18 100/62 93 02/11/19 18:01 02/11/19 18:01 02/11/19 18:01 02/11/19 18:01 02/11/19 18:01 Exam: General Appearance: Appearing as age, well-nourished in mild acute distress. Head: Atraumatic normocephalic Skin: Normal texture, normal turgor, warm, dry. Eyes: Conjunctivae not pale with no erythema, drainage, or ulcers. Anicteric. Neck: No Lymphadenopathy in the anterior/posterior cervical chain. No thyromegaly, masses or ulcers. Trachea midline. Heart: RRR, no murmurs. Capillary refill 3 seconds Lungs: No accessory muscle usage, lungs clear to auscultation bilaterally, no wheezes or crackles. Extremities: No pitting edema, No clubbing, No cyanosis. Abdomen: morbid obese, normoactive bowel sounds. non-tender to palpation, no hepatomegally. No guarding. Neuro: AOx3 with no new sensory loss or focal deficits. NIHSS 0 MSK: Strength 5/5 Upper extremity equal bilaterally. Strength 5/5 Lower extremity equal bilaterally Internal Med - H&P Results - Labs CBC & Chem 7: 02/12/19 04:03 02/12/19 04:03 - Summary of Assessment and Plan Summary of Assessment and Plan: 1.Syncope: Suspect cardiac cause, and polypharmacy. Held CCB and BB. My review of EKG is normal sinus rhythm with QTC prolongation and left bundle branch block -sgrabossa zero. Telemetry, orthostatics, cardiology consultation. 2.Normocytic anemia: Panel ordered. 3.Hyperkalemia: Reviewed chart and packet. Calcium gluconate, recheck labs. 4.Hyperglycemia: HG A1c ordered, insulin sliding scale. 5.Elevated troponin: Patient denied any chest pain or shortness of breath or if she has symptoms. on warfarin therapeutic Cardiology consultation. DVT prophylaxis: On warfarin-therapeutic Disposition: Less than 2 day stay likely. - Time Spent With Patient Total time spent is greater than 40 minutes 50% in coordination of care (as documented) at patient's floor/unit and/or counseling patient: Greater than 35 minutes
[2019-02-11] MEDS ORDERED: Ondansetron ODT 4 MG TAB.RAPDIS SL PRN (22:02)
[2019-02-11] MEDS ORDERED: *HR* Warfarin 3 MG TABLET PO ONE (22:15)
[2019-02-11] MEDS ORDERED: *HR* Warfarin 3 MG TABLET PO SCH (22:15)
[2019-02-11 23:03] LABS: Prothrombin Time 22.3 Seconds (9.4-12.1)
[2019-02-12 00:14] LABS: Bilirubin,Urine Negative (Negative); Blood,Urine Negative (Negative); Clarity,Urine Clear (Clear); Color,Urine Yellow (Yellow); Glucose,Urine (UA) Normal (Normal); Ketones,Urine Negative (Negative); Leukocyte Esterase,Urine Negative (Negative); Nitrite,Urine Negative (Negative); PH,Urine 5.5 pH Units (5.0-8.0); Protein,Urine Negative (Neg-Trace); Specific Gravity,Urine 1.014 (1.010-1.025); Urobilinogen,Urine Normal (Normal)
[2019-02-12 00:20] LABS: Amphetamine Screen,Urine Negative ng/mL (Cutoff=1000); Barbiturate Screen,Urine Negative ng/mL (Cutoff=200); Benzodiazepines Screen,Urine Negative ng/mL (Cutoff=200); Cannabinoid Screen,Urine Negative ng/mL (Cutoff = 50); Cocaine Screen,Urine Negative ng/mL (Cutoff= 300); Opiate Screen,Urine Negative ng/mL (Cutoff=300); Phencyclidine Screen,Urine Negative ng/mL (Cutoff=25)
[2019-02-12 04:22] LABS: Red Cell Distribution Width 18.9 % (11.5-14.5)
[2019-02-12 04:23] LABS: Hematocrit 29.1 % (37.5-50.1); Hemoglobin 8.4 g/dL (12.9-16.9); Mean Corpuscular HGB Conc 28.9 g/dL (31.6-35.5); Mean Corpuscular Hemoglobin 24.9 pg (28.0-33.3); Mean Corpuscular Volume 86.4 fL (83.0-100.0); Mean Platelet Volume 9.5 fL (9.4-12.4); Platelet Count 156 K/mcL (140-400); Red Blood Count 3.37 M/mcL (4.19-5.50); White Blood Count 8.7 K/mcL (4.3-11.1)
[2019-02-12 04:24] LABS: Estimated Average Glucose 160 mg/dl
[2019-02-12 04:27] LABS: Prothrombin Time 22.7 Seconds (9.4-12.1)
[2019-02-12 05:20] LABS: Albumin 3.4 g/dL (3.5-5.7); Albumin/Globulin Ratio 1.1 (1.1-2.2); Bilirubin,Total 1.1 mg/dL (0.3-1.0); Chol/HDL Ratio 5.1 (0-4.9); Magnesium 2.9 mg/dL (1.6-2.6); Phosphorous 4.6 mg/dL (2.7-4.5); Potassium 5.5 mEq/L (3.5-5.1); Total Protein 6.4 g/dL (6.4-8.9)
[2019-02-12] MEDS: Bumetanide 1 MG TABLET PO SCH ×2 (07:38→16:45)
[2019-02-12] MEDS: Aspirin 81 MG TAB.CHEW PO SCH (07:38)
--- NOTE | 2019-02-12 10:03 | Cardiology Consult Note ---
<Samuel Diaz P - Last Filed: 02/12/19 13:04> Date of Encounter: 02/12/19 - Attending Attestation Patient seen and examined independently. He was admitted with presumptive syncope. Some of his symptoms are consistent with a vasodepressor event as he notes with his event he was nauseous and fatigued. He denies any associated diaphoresis. He also believes he had just plain Fallin in that he was out in the bright sun and believes he bolted his vision and orientation and may have just fallen. In any event several adj ustments to his care should be made in these are 1. Congestive heart failureI would continue his diuretic at Bumex 2 mg twice a day. On exam today he is still volume overloaded with significant pitting edema to below the knee. He has an elevated BNP. I would support his edema with support hose bilaterally . 2. Obstructive sleep apnea - he gives a history of obstructive sleep apnea and was treated years ago. This certainly can be a contributor to his right heart failure and edema. His echocardiogram did show a hypokinetic right ventricle. I would recommend reestablishing a follow-up with the sleep physicians so a repeat sleep study can be performed. 3 ) device therapy. His clinical status post device implanted unchangeable follow-up is scheduled. Assessment and Plan Discussion w patient/family: The assessment and plan as outlined above was discussed with the patient and/or family members who expressed understanding and agreement. All questions were answered. Thank you for involving us in the care of your patient. Please call with any questions. History of Present Illness History of present illness: Mr. Elliott is a 68 year old male Medications and Allergies Amiodarone [Cordarone] 200 mg PO DAILY 09/07/18 [History] Carvedilol [Coreg] 6.25 mg PO BID 09/07/18 [History] Lisinopril 2.5 mg PO DAILY 09/07/18 [History] Warfarin [Coumadin] 3 mg PO Q48H 09/07/18 [History] GlipiZIDE [Glipizide Xl] 5 mg PO DAILY 09/09/18 [History] Aspirin 81 mg PO DAILY 11/07/18 [History] Multivitamin [One-Daily Multi-Vitamin] 1 tab PO DAILY 12/12/18 [History] Bumetanide [Bumex] 2 mg PO BIDDIURETIC #120 tablet 12/19/18 [Rx] Warfarin Sodium 1.5 mg PO Q48H 02/11/19 [History] Allergy/AdvReac Type Severity Reaction Status Date / Time No Known Allergies Allergy Verified 02/11/19 21:32 All Systems Review: The remainder of the systems were reviewed and are negative Physical Examination Vital Signs, Last 4 Hours Temp Pulse Resp BP Pulse Ox 02/12/19 11:41 98.1 F 84 18 117/71 97 Results 02/12/19 04:03 02/12/19 04:03 Lab Results 02/11/19 02/11/19 02/12/19 22:37 22:37 04:03 WBC 8.7 Hgb 8.4 L Hct 29.1 L Plt Count 156 INR 2.0 Sodium Potassium Chloride Carbon Dioxide BUN Creatinine Glucose Calcium Magnesium Total Bilirubin AST ALT Alkaline Phosphatase Troponin I 0.20 H* B-Natriuretic Peptide 02/12/19 02/12/19 02/12/19 04:03 04:03 04:03 WBC Hgb Hct Plt Count INR 2.0 Sodium 136 Potassium 5.5 H Chloride 98 Carbon Dioxide 31 H BUN 67 H Creatinine 2.02 H Glucose 214 H Calcium 9.0 Magnesium 2.9 H Total Bilirubin 1.1 H AST 43 H ALT 55 H Alkaline Phosphatase 224 H Troponin I 0.17 H* B-Natriuretic Peptide 02/12/19 02/12/19 04:03 11:52 WBC Hgb Hct Plt Count INR Sodium Potassium Chloride Carbon Dioxide BUN Creatinine Glucose Calcium Magnesium Total Bilirubin AST ALT Alkaline Phosphatase Troponin I 0.22 H* B-Natriuretic Peptide 2260 H Consult Discharge Plan - Plan Referrals: NONE,PCP [Primary Care Provider] - <Jerrell Hernandez - Last Filed: 02/13/19 07:35> Date of Encounter: 02/13/19 Time of Encounter: 09:57 Assessment and Plan (1) Syncope and collapse Current Visit: No Status: Acute Patient presents after fall due to weakness and loss of consciousness after fall. ICD in place for history of severe NICMP. Prior testing: MUGA scan completed 11/2018 showed EF 16%. TTE 10/2018- EF 30-35%. Severe global left ventricular systolic dysfunction. Mildly dilated right ventricle with mild right ventricular hypokinesis. TTE 09/07/18-LVEF 30-35%. Severe segmental left ventricular systolic dysfunction. Mildly dilated left ventricle, moderate concentric left ventricular hypertrophy. Indeterminate diastolic function. Mild RV hypokinesis. Mildly dilated left atrium. Mild aortic stenosis. Moderate tricuspid regurgitation. Mild pulmonic regurgitation. Moderate pulmonary hypertension. Last [facility] with stent in 2017 at outside hospital. Repeat TTE pending. S/p dual chamber ICD placement 01/15/19. Noted unsuccessful LV lead placement. May need repeat procedure in future. Out-pt f/u scheduled with Dr. David Craig. Device check shows rate controlled atrial arrhythmia and frequent rate controlled afib. No arrhythmia to account for syncope. EKG Shows SR with long 1st degree block. EMS documentation reviewed, patient normotensive per documentation and HR controlled. Blood sugar 255. Orthostatic vitals normal. Noted to have mild INNA. Syncope possibly due to polypharmacy. Monitor kidney function and adjust diuretic if needed. Continue amiodarone and restart carvedilol as tolerated. Continue zestril. Compression stockings and slow position change. Out-pt sleep study recommended for untreated sleep apnea. Further recommendation pending TTE. (2) INNA (acute kidney injury) Current Visit: No Status: Acute Mild INNA on CKD noted. Primary team following. (3) Afib Current Visit: No Status: Chronic H/o PAF on coumadin. Device check shows multiple episodes of rate controlled afib. (high atrial rates and controled ventricular rates) Continue amiodarone and start carvedilol at lower dose. Increase as tolerated. Qualifiers: Atrial fibrillation type: paroxysmal Qualified Code(s): I48.0 - Paroxysmal atrial fibrillation (4) Elevated troponin Current Visit: No Status: Chronic Troponin elevation 0.20, 0.17 in the setting of CKD and severe ICMP. EKG shows LBBB, SR with 1st degree block. H/o LBBB. Suspect demand ischemia. He denies chest pain. Repeat TTE pending. No indication for cardiac rehab at this time. (5) CAD (coronary artery disease) Current Visit: No Status: Chronic H/o CABG in 1999 and multiple cardiac stents. Continue asa, statin, and restart bb. Qualifiers: Coronary Disease-Associated Artery/Lesion type: [place] artery [place] vs. transplanted heart: [place] heart Associated angina: without angina Qualified Code(s): I25.10 - Atherosclerotic heart disease of [place] coronary artery without angina pectoris (6) Ischemic cardiomyopathy Current Visit: No Status: Acute H/o acute on chronic HFrEF. Bi-ventricular failure, complicated by untreated sleep apnea, pulmonary HTN. Continues to have NYHA class III symptoms. Recent admissions for CHF exacerbation. States overall edema and SOB improved over past month. Continue bumex if kidney function allows. Out pt sleep study. BNP 2260, down from 3157 last admission. CXR shows stable cardiomegally and chronic pulmonary vascular congestion. No Overt CHF on CXR. Continue low sodium diet and daily weights. Continue oral bumex. Discussion w patient/family: The assessment and plan as outlined above was discussed with the patient and/or family members who expressed understanding and agreement. All questions were answered. Thank you for involving us in the care of your patient. Please call with any questions. History of Present Illness Consult date: 02/12/19 Requesting physician: Nata Fountain Consult reason: syncope Chief complaint: Fall , loss of conciousness History of present illness: Mr. Elliott is a 68 year old male with past medical history significant for ICMP with EF 16%, ICD placement 2 weeks ago, chronic HFrEF, CABG in 1999, multiple cardiac stents (last [address] Dumas), and atrial fibrillation on coumadin. He presents with the c/o syncopal episode. States he was in his car and stood up to go in his house when he suddenly felt weak. He then slid to the ground with the help of a family member. He thinks he may have loss consciousness for a couple of min after laying on the ground. States this happened before when the sun suddenly hits him. He fell 5-6 times recently but dis not pass out. He denies dizziness, lightheadedness, or palpitations. Denies having chest pain or increased SOB. Denies vision changes or incontinence. He is noted to have BLE edema. Patient reports edema has improved from previous. Past Med Surg Social Fam HX - Past Medical History Attestation: Yes The following information was validated with the patient. Medical history: atrial fibrillation, cardiomyopathy, CHF, coronary artery disease, diabetes, hypertension, myocardial infarction, renal disease Psychiatric history: no psych history - Past Surgical History Surgical History: angioplasty/stent, coronary bypass (CABG) Additional surgical history: Cardiac cath with stent placement. CABG - Social History Smoking Status: Never smoker Smokeless Tobacco Status: No Alcohol use: none Drug use: none - Family History Mother Living Status: Hx Family Cardiac Disorders: Yes Father Living Status: Hx Family Cardiac Disorders: Yes All Systems Review: The remainder of the systems were reviewed and are negative Physical Examination Vital Signs, Last 4 Hours Temp Pulse Resp BP Pulse Ox 02/12/19 06:44 98.1 F 82 19 93/58 93 General: Conversant, No Apparent Distress HEENT: Atraumatic, Normocephaly, Mucus Membranes Moist Neck: No JVD, Normal carotid pulses Cardiac: Other (irregular) Lungs: Normal Breath Sounds, No Wheeze, Rales, Rhonchi Neuro: Alert and responsive, No focal deficits noted Abdomen: Soft, Non-Tender Skin: No rashes noted on visualized skin, Other (Multiple ecchymotic areas. ) Musculoskeletal: No Chest Wall Tenderness Extremities: No Clubbing, No Cyanosis, Normal Pulses, Other (1+ edema BLE. ) Results 02/12/19 04:03 02/13/19 02:43 Lab Results 02/11/19 02/11/19 02/12/19 22:37 22:37 04:03 WBC 8.7 Hgb 8.4 L Hct 29.1 L Plt Count 156 INR 2.0 Sodium Potassium Chloride Carbon Dioxide BUN Creatinine Glucose Calcium Magnesium Total Bilirubin AST ALT Alkaline Phosphatase Troponin I 0.20 H* B-Natriuretic Peptide 02/12/19 02/12/19 02/12/19 04:03 04:03 04:03 WBC Hgb Hct Plt Count INR 2.0 Sodium 136 Potassium 5.5 H Chloride 98 Carbon Dioxide 31 H BUN 67 H Creatinine 2.02 H Glucose 214 H Calcium 9.0 Magnesium 2.9 H Total Bilirubin 1.1 H AST 43 H ALT 55 H Alkaline Phosphatase 224 H Troponin I 0.17 H* B-Natriuretic Peptide 02/12/19 04:03 WBC Hgb Hct Plt Count INR Sodium Potassium Chloride Carbon Dioxide BUN Creatinine Glucose Calcium Magnesium Total Bilirubin AST ALT Alkaline Phosphatase Troponin I B-Natriuretic Peptide 2260 H - Imaging and Cardiology Echo: report reviewed Other Results: [facility]- EF 16% 11/2018
[2019-02-12] MEDS ORDERED: Perflutren Lipid Microsphere 1.3 ML in 0.9 % Sodium Chloride 8.7 ML IVP ONE (10:45)
[2019-02-12] MEDS ORDERED: Perflutren Lipid Microsphere 2 ML VIAL ONE (10:48)
--- NOTE | 2019-02-12 15:42 | Internal Med Progress Note ---
Hospitalist Progress Note - Encounter Date of Encounter: 02/12/19 Time of Encounter: 15:39 - Subjective Interval History: Patient doing well this morning. Orthostatics were negative. No events on telemetry. Get patient up to side of the bed and standing and did not feel lightheaded or dizzy with this. - Exam Vitals: Temp Pulse Resp BP Pulse Ox 98.1 F 84 18 117/71 97 02/12/19 11:41 02/12/19 11:41 02/12/19 11:41 02/12/19 11:41 02/12/19 11:41 Exam: General: Ill-appearing and in no acute distress HEENT: No erythema of posterior pharynx. No exudates. Lymphatics: No mandibular or cervical lymphadenopathy Cardiovascular: RRR. No murmurs. No chest wall tenderness. Lungs: Clear to auscelltation bilaterally. Regular chest rise. Abdomen: Non-tender. No rebound or gaurding. Nl bowel sounds. Extremities: 1+ pitting edema. 2+ pulses radial and pedal pulses Skin: No rahses, abrasions, or contusions. Nl cap refill. Psych: Nl attention. A&Ox3 Neuro: guest room attendant II-XII intact. 5/5 strength. Sensation to light touch and pinprick intact. - Assessment and Plan (1) Syncope Current Visit: Yes Status: Acute Assessment and Plan: Patient with history of HFrEF 30-35% with ICD presents with a syncopal event in the setting of stable vitals and negative orthostatic pressures on admission and negative initial workup. -No events on telemetry -ICD interrogated, which was unrevealing -Fluid status difficult to determine but patient likely still grossly hypervolemic given BNP results and lower extremity edema -Orthostatics negative but blood pressure on the low end of normal. May benefit lower dose beta yun PLAN: - Coreg 6.25 --> 3.125mg bid - Continue all other current cardiac medications (2) Congestive heart failure Current Visit: No Status: Acute Assessment and Plan: History of HFrEF 30-35% with ICD. -S/p dual chamber ICD placement 01/15/19. Noted unsuccessful LV lead placement. May need repeat procedure in future -Small bump in Cr but mild -Fluid status difficult to determine but patient likely still grossly hy pervolemic given BNP results and lower extremity edema -Will not push diuresis today given CKD and patient asymptomatic not on oxygen PLAN: - Continue home meds: Bumex 2mg bid Lisinopril 2.5mg qd - Coreg 6.25mg bid --> 3.125mg bid (3) INNA (acute kidney injury) Current Visit: No Status: Acute Assessment and Plan: Mild creatinine bump in setting of Bumex use. -Appears hypervolemic asymptomatic -Given small deviation may just be within his normal range and he has been steady on this dose of diuretic, we will not make any changes today and trend PLAN: - Continue Bumex 2mg po bid (4) Chronic kidney disease Current Visit: No Status: Chronic (5) Hyperkalemia Current Visit: Yes Status: Acute Assessment and Plan: Continue diuresis plan above and trend (6) Afib Current Visit: No Status: Chronic Assessment and Plan: Paroxysmal. Continue home amiodarone and Coumadin. Decreasing Coreg per above. DVT Prophylaxis: warfarin Internal Medicine: Result - Labs CBC & Chem 7: 02/12/19 04:03 02/12/19 04:03 Labs: Short CBC 02/12/19 Range/Units 04:03 WBC 8.7 (4.3-11.1) K/mcL Hgb 8.4 L (12.9-16.9) g/dL Hct 29.1 L (37.5-50.1) % Plt Count 156 (140-400) K/mcL BMP 02/12/19 04:03 Sodium 136 Potassium 5.5 H Chloride 98 Carbon Dioxide 31 H BUN 67 H Creatinine 2.02 H Glucose 214 H Calcium 9.0 Cardiac Enzymes 02/11/19 02/12/19 02/12/19 Range/Units 22:37 04:03 11:52 Troponin I 0.20 H* 0.17 H* 0.22 H* (< 0.04) ng/mL Liver Function 02/12/19 Range/Units 04:03 Total Bilirubin 1.1 H (0.3-1.0) mg/dL AST 43 H (13-39) Units/L ALT 55 H (7-52) Units/L Alkaline Phosphatase 224 H (34-104) Units/L Albumin 3.4 L (3.5-5.7) g/dL Urine 02/11/19 Range/Units 23:51 Urine Color Yellow (Yellow) Urine Clarity Clear (Clear) Urine pH 5.5 (5.0-8.0) pH Units Ur Specific [place] 1.014 (1.010-1.025) Urine Protein Negative (Neg-Trace) mg/dL Urine Glucose (UA) Normal (Normal) mg/dL - ABG Interpretation ABG results: PT/INR, D-dimer PT 22.7 Seconds (9.4-12.1) H 02/12/19 04:03 - Impressions Impressions Chest X-Ray 02/12/19 07:22 IMPRESSION: 1. Stable cardiomegaly and chronic pulmonary venous hypertension. No overt congestive heart failure. 2. Stable mild left pleural effusion and basilar consolidation. D/ / 02/12/2019 08:13:26 Johnathon Rodriguez MD / micheal Interpreting Provider: Johnathon Rodriguez MD Echocardiogram 02/12/19 22:03 Impressions: LVEF 15-20%. Severe global left ventricular systolic dysfunction. Mildly dilated left ventricle with moderate concentric left ventricular hypertrophy. Indeterminate diastolic function. Mild right ventricular hypokinesis. Mild biatrial dilation. Moderate aortic stenosis. Mean gradient 22 mmHg, may be underestimated due to low cardiac output. Mild aortic regurgitation. Mild mitral regurgitation. Moderate tricuspid regurgitation. Mild pulmonic regurgitation. Severe pulmonary hypertension. No evidence of PFO with agitated saline contrast. Left Ventricular Wall Motion: Rest Echo Findings The apex, apical inferior, mid inferior, basal inferior, apical anterior, mid anterior, basal anterior, apical septal, mid inferior septal, basal inferior septal, apical lateral, mid anterior lateral, basal anterior lateral, mid anterior septal, mid inferior lateral, basal anterior septal and basal inferior lateral martínez were hypokinetic. Findings: Study Quality * Technically sub-optimal due to clinical status. ECG Findings * Atrial fibrillation. Left Ventricle * LVEF 15-20%. * Severe global left ventricular systolic dysfunction. * Mildly dilated left ventricle. * Moderate concentric left ventricular hypertrophy. * Indeterminate diastolic function. * There is no LV thrombus. * Definity echo contrast was used. Right Ventricle * Normal right ventricular structure. * Mild right ventricular hypokinesis. Left Atrium * Mildly dilated left atrium. Right Atrium * Mildly dilated right atrium. Interatrial Septum * No evidence of PFO with agitated saline contrast. Aortic Valve * Moderately calcified aortic valve leaflets. * Moderate aortic stenosis, may be underestimated due to low cardiac output. * Mean gradient 22 mmHg * Mild aortic regurgitation. Mitral Valve * Normal mitral valve structure. * No mitral stenosis. * Mild mitral regurgitation. Tricuspid Valve * Normal tricuspid valve structure. * No tricuspid stenosis. * Moderate tricuspid regurgitation. * Estimated RVSP is 64 mmHg. * Estimated RA pressure is 8 mmHg. * Severe pulmonary hypertension. Pulmonic Valve * Pulmonic valve is not well visualized. * No pulmonic stenosis. * Mild pulmonic regurgitation. Aorta * Normally sized aortic root. Pericardium * The pericardium appears normal. IVC * The IVC is dilated. * < 50% respiratory change. Device lead * A device lead was visualized in the right atrium and right ventricle. - VTE Reasons for not Prescribing Prophylaxis: Not indicated-Anticoagulated or INR therapeutic Consult Discharge Plan - Plan Referrals: NONE,PCP [Primary Care Provider] - (4) Chronic kidney disease Qualifiers: Chronic kidney disease stage: stage 3 (moderate) Qualified Code(s): N18.3 - Chronic kidney disease, stage 3 (moderate) (6) Afib Qualifiers: Atrial fibrillation type: paroxysmal Qualified Code(s): I48.0 - Paroxysmal atrial fibrillation
[2019-02-12] MEDS ORDERED: Warfarin perPT PO PRN (18:00)
[2019-02-12] MEDS ORDERED: *HR* Warfarin 3 MG TABLET PO ONE (18:00)
[2019-02-13 03:16] LABS: INR 2.1; Prothrombin Time 24.3 Seconds (9.4-12.1)
[2019-02-13 03:21] LABS: Calcium 8.8 mg/dL (8.6-10.3); Magnesium 2.8 mg/dL (1.6-2.6); Potassium 5.7 mEq/L (3.5-5.1)
[2019-02-13] MEDS: Aspirin 81 MG TAB.CHEW PO SCH (07:43)
[2019-02-13] MEDS: Bumetanide 1 MG TABLET PO SCH (07:43)
--- NOTE | 2019-02-13 10:53 | Cardiology Progress Note ---
Date of Encounter: 02/13/19 Time of Encounter: 10:30 Assessment and Plan (1) Syncope and collapse Current Visit: No Status: Acute Patient presents after fall due to weakness and loss of consciousness after fall. Suspect symptoms are multifactorial; Suspect may be secondary to orthostatic hypotension Blood pressure and heart rates stable overnight. ? polypharmacy TTE completed and demonstrated LVEF 15% which is similar to previous. Mild INNA upon presentation. Hx of severe NICMP s/p ICD--device check completed yesterday, no events to attribute to syncopal episode yesterday. Continue BB at decreased dose (Coreg 3.125 mg BID) and lose dose Lisinopril 2.5 mg daily. Continue amiodarone 200 mg daily. Patient is eager for d/c. F/u with Dr. Craig as outpatient for EP and Dr. Sparks for NICMP/CHF. (2) Afib Current Visit: No Status: Chronic H/o PAF on coumadin. Device check shows multiple episodes of rate controlled afib. (high atrial rates and controlled ventricular rates) Continue amiodarone and start carvedilol at lower dose. Increase as tolerated. Qualifiers: Atrial fibrillation type: paroxysmal Qualified Code(s): I48.0 - Paroxysmal atrial fibrillation (3) Ischemic cardiomyopathy Current Visit: No Status: Acute H/o acute on chronic HFrEF. Bi-ventricular failure, complicated by untreated sleep apnea, pulmonary HTN. Describes unchanged NYHA class III symptoms. Multiple admissions for CHF exacerbation. States overall edema and SOB improved over past month. Continue bumex if kidney function allows. TTE shows LVEF 15-20% BNP 2260, down from 3157 last admission. CXR shows stable cardiomegally and chronic pulmonary vascular congestion. No Overt CHF on CXR. 24 I&O: -980 mL. BP stable, continue decreased dose of Coreg 3.125 mg BID (down from 6.25) as syncope is suspected from orthostatic hypotension. Continue ACEi. Continue low sodium diet and daily weights. Continue oral bumex 2 mg BID Will coordinate 1-2 week follow-up with Dr. Sparks at [facility]. Discussion w patient/family: The assessment and plan as outlined above was discussed with the patient and/or family members who expressed understanding and agreement. All questions were answered. Thank you for involving us in the care of your patient. Please call with any questions. The patient will be discussed and reviewed with Dr. Winn; changes to be made accordingly. Subjective Principal diagnosis: Syncope Interval history: Seen and examined. patient is eager for d/c home. CHF teaching discussed including Na/fluid restricted diet. Reports edema improved with compression stockings, will utilize at home when he has assistance with application. Objective Vital Signs, Last 4 Hours Pulse Ox 02/13/19 10:47 93 General: Conversant, No Apparent Distress HEENT: Atraumatic, Normocephaly Cardiac: Other (irregularly irregular) Lungs: Normal Breath Sounds Neuro: Alert and responsive Abdomen: Soft Skin: Other (ecchymosis left side of face) Extremities: Other (+2 BLE edema) Results 02/12/19 04:03 02/13/19 02:43 Lab Results 02/12/19 02/13/19 02/13/19 11:52 02:43 02:43 INR 2.1 Sodium 136 Potassium 5.7 H Chloride 98 Carbon Dioxide 31 H BUN 68 H Creatinine 2.05 H Glucose 170 H Calcium 8.8 Magnesium 2.8 H Troponin I 0.22 H* - Imaging and Cardiology Echo: report reviewed - EKG Interpretation EKG results cardiology: personally reviewed - VTE Reasons for not Prescribing Prophylaxis: Not indicated-Anticoagulated or INR therapeutic Consult Discharge Plan - Plan Referrals: NONE,PCP [Primary Care Provider] - CHADS2-VASC Score - Score Age: 65-74 Sex: Male CHF History: Yes Hypertension history: No Stroke/TIA/Thromboembolism Hx: No Vascular disease history: Yes Diabetes history: No Score: 3 NYHAC - Classification Classification: Class 3
[2019-02-13 10:56] VITALS: BP 95/51
--- NOTE | 2019-02-13 11:32 | Discharge Summary ---
- NOTES TO OUTPATIENT PROVIDER Notes to Outpatient Provider: Repeat potassium and magnesium needs to be checked. Repeat BMP to assess Cr Date of Encounter: 02/13/19 Time of Encounter: 11:26 - Discharge Diagnosis (1) Congestive heart failure Priority: Primary Status: Chronic Qualifiers: Heart failure type: systolic Heart failure chronicity: chronic Qualified Code(s): I50.22 - Chronic systolic (congestive) heart failure (2) INNA (acute kidney injury) Priority: Secondary Status: Acute (3) Afib Priority: Secondary Status: Chronic Qualifiers: Atrial fibrillation type: paroxysmal Qualified Code(s): I48.0 - Paroxysmal atrial fibrillation (4) Chronic kidney disease Priority: Secondary Status: Chronic Qualifiers: Chronic kidney disease stage: stage 3 (moderate) Qualified Code(s): N18.3 - Chronic kidney disease, stage 3 (moderate) (5) Syncope Priority: Secondary Status: Acute Qualifiers: Syncope type: unspecified Qualified Code(s): R55 - Syncope and collapse (6) Hyperkalemia Priority: Secondary Status: Acute Hospital course: Mr. Elliott is a 68 year old male with a history of heart failure with preserved ejection fraction status post ICD presenting after fall. Cardiology was consulted. Interrogation of pacemaker revealed no arrhythmia. Echo showed stable ejection fraction. Cardiology reduced dose of beta yun. Patient was started on atorvastatin. Patient did have slight elevation of creatinine, potassium, magnesium during admission. Patient was stable on day of discharge. PCP to follow-up BMP to assess creatinine and potassium as well as repeat magnesium. Patient will likely need repeat sleep study to reevaluate sleep apnea. Discharge discussed with: patient - Time Spent with Patient Total time spent providing and/or coordinating discharge services: 40 minutes - Discharge Medications Prescriptions: New Carvedilol [Coreg] 3.125 mg PO BIDWM #60 tablet Atorvastatin [Lipitor] 80 mg PO HS 30 Days #30 tablet Continued Amiodarone [Cordarone] 200 mg PO DAILY Lisinopril 2.5 mg PO DAILY Warfarin [Coumadin] 3 mg PO Q48H GlipiZIDE [Glipizide Xl] 5 mg PO DAILY Aspirin 81 mg PO DAILY Multivitamin [One-Daily Multi-Vitamin] 1 tab PO DAILY Bumetanide [Bumex] 2 mg PO BIDDIURETIC #120 tablet Warfarin Sodium 1.5 mg PO Q48H Discontinued Carvedilol [Coreg] 6.25 mg PO BID Home Medications: Amiodarone [Cordarone] 200 mg PO DAILY 09/07/18 [History] Lisinopril 2.5 mg PO DAILY 09/07/18 [History] Warfarin [Coumadin] 3 mg PO Q48H 09/07/18 [History] GlipiZIDE [Glipizide Xl] 5 mg PO DAILY 09/09/18 [History] Aspirin 81 mg PO DAILY 11/07/18 [History] Multivitamin [One-Daily Multi-Vitamin] 1 tab PO DAILY 12/12/18 [History] Bumetanide [Bumex] 2 mg PO BIDDIURETIC #120 tablet 12/19/18 [Rx] Warfarin Sodium 1.5 mg PO Q48H 02/11/19 [History] Atorvastatin [Lipitor] 80 mg PO HS 30 Days #30 tablet 02/13/19 [Rx] Carvedilol [Coreg] 3.125 mg PO BIDWM #60 tablet 02/13/19 [Rx] Allergies/Adverse Reactions: Allergy/AdvReac Type Severity Reaction Status Date / Time No Known Allergies Allergy Verified 02/11/19 21:32 Date of admission: 02/11/19 17:46 Primary care physician: PCP NONE Consults: 02/11/19 21:52 Consult to Occupational Therapy [CONS] Routine Comment: Evaluate, develop and implement POC Reason for Consult: multiple falls Does patient have active BEDREST order?: No Is patient medically & hemodynamically stable?: Yes Patient assessed for mobility or mobilized this visit?: No Consult to Physical Therapy [CONS] Routine Comment: Evaluate, develop and implement POC Reason for Consult: multiple falls Does patient have active BEDREST order?: No Is patient medically & hemodynamically stable?: Yes Patient assessed for mobility or mobilized this visit?: No Consult to Coremaking Machine Setter [CONS] Routine Reason for SW Consult: multiple falls 02/12/19 06:00 Consult to Cardiology [CONS] Routine Comment: Consulting Provider: Cardiology Patricia Reason for Consult: concern for cardiac related syncope. Call Completed: No Discharging clinician: Kady Khan Anticipated date of discharge: 02/13/19 - Constitutional Vitals: Temp Pulse Resp BP Pulse Ox 97.2 F L 79 17 95/51 92 02/13/19 10:55 02/13/19 10:55 02/13/19 10:55 02/13/19 10:55 02/13/19 10:55 General appearance: Present: A&O X 3, no acute distress, answers questions appropriately Exam: GENERAL APPEARANCE: Well developed, well nourished, alert and cooperative, and appears to be in no acute distress. HEENT: Normocephalic/atraumatic, PERRLA. NECK: Supple, nontender without lymphadenopathy. CARDIOVASCULAR: Irregularly irregular rhythm RESPIRATORY: Clear to auscultation bilaterally; no rales, rhonchi or wheezing. ABDOMEN: Soft, nondistended, nontender; bowel sounds present. MUSKULOSKELETAL: No limitations in range of motion. EXTREMITIES: 1+ BLE edema NEUROLOGICAL: No focal deficits SKIN: Skin normal color, texture and turgor with no lesions or eruptions. PSYCHIATRIC: Judgment and reasoning; no hallucinations; normal affect. - Patient Status Disposition: Home, Self-Care Condition: Fair Functional capacity at discharge: independent ambulation Overall status at discharge: patient is back to baseline - Discharge Instructions Follow Up With: NONE,PCP [Primary Care Provider] - Additional Instructions: Per cardiology note, patient to follow up with Dr. Craig electrophysiology as well as Dr. Sparks in cardiology. - Diet and Activity Activity: resume usual activities as tolerated - VTE Reasons for not Prescribing Prophylaxis: Not indicated-Anticoagulated or INR therapeutic
--- NOTE | 2019-02-13 13:43 | Physician Discharge Referral ---
Home Health/Hosp Referral Info Transfer to: Home Health Provider in Charge Post Discharge: PCP - Diagnosis (1) Congestive heart failure Priority: Primary Status: Chronic (2) INNA (acute kidney injury) Priority: Secondary Status: Acute (3) Afib Priority: Secondary Status: Chronic (4) Chronic kidney disease Priority: Secondary Status: Chronic (5) Syncope Priority: Secondary Status: Acute (6) Hyperkalemia Priority: Secondary Status: Acute - Respiratory Orders Smoking Cessation: Smoking cessation has been advised. For more information, call the [place] Tobacco Quit Line at 6-067-TIUN-NOW. - Diet/Nutrition Diet/Nutrition Orders: Cardiac - Activity Activity Orders: Up ad abby - Services Needed Following services are medically necessary services: Nursing, Physical Therapy, Occupational Therapy - Transfer Medications Prescriptions: Carvedilol [Coreg] 3.125 mg PO BIDWM #60 tablet Atorvastatin [Lipitor] 80 mg PO HS 30 Days #30 tablet Home Medications: Amiodarone [Cordarone] 200 mg PO DAILY 09/07/18 [History] Lisinopril 2.5 mg PO DAILY 09/07/18 [History] Warfarin [Coumadin] 3 mg PO Q48H 09/07/18 [History] GlipiZIDE [Glipizide Xl] 5 mg PO DAILY 09/09/18 [History] Aspirin 81 mg PO DAILY 11/07/18 [History] Multivitamin [One-Daily Multi-Vitamin] 1 tab PO DAILY 12/12/18 [History] Bumetanide [Bumex] 2 mg PO BIDDIURETIC #120 tablet 12/19/18 [Rx] Warfarin Sodium 1.5 mg PO Q48H 02/11/19 [History] Atorvastatin [Lipitor] 80 mg PO HS 30 Days #30 tablet 02/13/19 [Rx] Carvedilol [Coreg] 3.125 mg PO BIDWM #60 tablet 02/13/19 [Rx] Allergies/Adverse Reactions: Allergy/AdvReac Type Severity Reaction Status Date / Time No Known Allergies Allergy Verified 02/11/19 21:32 Certification: Further, I certify that my clinical findings support that this patient is homebound (i.e. absences from home require considerable and taxing effort and are for medical reasons or cheondoism services or infrequently or short duration when for other reasons) because: Homebound Reason: Leaving home requires considerable and taxing effort due to condition Attestation: My signature below is to certify that this patient is under my care and that I, or nurse practitioner, or a physician's senior court office assistant working with me, has a [id number] encounter with this patient.
[2019-02-13] MEDS ORDERED: *HR* Warfarin 3 MG TABLET PO ONE (18:00)
== END 2019-02-13 13:00 | disposition home or self-care (01) ==
LOC: 2ANU → SUATTDRO 17:46
PROVIDERS: ADMIT Student in an Organized Health Care Education/Training Program; ATTEND Family Medicine